=== PATIENT | male | born 1940 | race Caucasian/White ===

== ENCOUNTER → 2017-04-18 | Outpatient (CLI) | payer OTHER ==
[~2017-04-18] MED LIST: ASPEC81 PO; GLC500 PO; IBUP-1428 PO; LISI-725 PO; METH500T37 PO; OMEG10007 PO; OSTEO BIOFLEX PO; PRAV20TA PO
[2017-04-18 15:01] LABS: HEMATOCRIT 38.5 % (42-52); MEAN CORPUSCULAR HEMOGLOBIN 34.1 pg (25-34); MEAN CORPUSCULAR HGB CONC 33.8 g/dl (32-36); MEAN PLATELET VOLUME 11.8 fL (7.4-10.4); PLATELET COUNT 129 K/uL (130-400); RED BLOOD COUNT 3.81 M/uL (4.7-6.1); WHITE BLOOD COUNT 6.33 K/uL (4.8-10.8)
[2017-04-18 15:19] LABS: ESTIMATED AVERAGE GLUCOSE 148 mg/dl; HA1C FLAG Normal (Normal)
[2017-04-18 15:26] LABS: URINE APPEARANCE CLEAR (CLEAR); URINE BILIRUBIN NEG (NEG); URINE COLOR YELLOW; URINE EPITHELIAL CELL AUTO 0-5 /lpf (0-5); URINE NITRITE NEG (NEG); URINE SPECIFIC GRAVITY 1.018 (1.000-1.030); UROBILINOGEN NEG (NEG)
[2017-04-18 15:29] LABS: BLOOD UREA NITROGEN 31 mg/dl (7-18); BUN/CREATININE RATIO 14.1 (10-20); CALCIUM 9.2 mg/dl (8.5-10.1); CARBON DIOXIDE 26 mmol/L (21-32); CHLORIDE 104 mmol/L (98-107); GLUCOSE 174 mg/dl (70-99); POTASSIUM 4.5 mmol/L (3.5-5.1); SODIUM 138 mmol/L (136-145)
[2017-04-18 15:33] LABS: URINE PROTIEN/CREAT RATIO 0.2 (0-0.2); URINE TOTAL PROTEIN 30.1 mg/dl (0-11.9)
[2017-04-18 15:34] LABS: MANUAL MICROSCOPIC REQUIRED? NO; REVIEW REQ? NO
[2017-04-18 15:40] LABS: CHOLESTEROL 154 mg/dl (0-200); CHOLESTEROL/HDL RATIO 2.8; HDL CHOLESTEROL 55 mg/dl; LDL CHOLESTEROL CALCULATED 76 mg/dl; PHOSPHORUS 3.1 mg/dl (2.5-4.9); TRIGLYCERIDES 117 mg/dl (0-150); VERY LOW DENSITY LIPOPROT CALC 23 mg/dl
== END | disposition home or self-care (01) ==
LOC: C.LABBC 10:46
PROVIDERS: ATTEND Internal Medicine Nephrology
DX: N18.3 Chronic kidney disease, stage 3 (moderate) (principal); I12.9 Hypertensive chronic kidney disease with stage 1 through stage 4 chronic kidney disease, or unspecified chronic kidney disease; D64.9 Anemia, unspecified; E55.9 Vitamin D deficiency, unspecified; R31.9 Hematuria, unspecified; E11.22 Type 2 diabetes mellitus with diabetic chronic kidney disease; E78.5 Hyperlipidemia, unspecified; E11.29 Type 2 diabetes mellitus with other diabetic kidney complication; I25.10 Atherosclerotic heart disease of native coronary artery without angina pectoris; I70.0 Atherosclerosis of aorta

== ENCOUNTER → 2018-01-30 | Outpatient (CLI) | payer OTHER ==
[2018-01-30 17:07] LABS: ALBUMIN 4.1 gm/dl (3.4-5.0); ALT/SGPT 28 U/L (12-78); AST/SGOT 24 U/L (15-37); BLOOD UREA NITROGEN 29 mg/dl (7-18); CALCIUM 9.1 mg/dl (8.5-10.1); CARBON DIOXIDE 28 mmol/L (21-32); CREATININE 2.13 mg/dl (0.60-1.40); GLUCOSE 142 mg/dl (70-99); POTASSIUM 4.3 mmol/L (3.5-5.1); SODIUM 138 mmol/L (136-145)
[2018-01-30 17:10] LABS: ALKALINE PHOSPHATASE 52 U/L (45-117); CHOLESTEROL 124 mg/dl (0-200); LDL CHOLESTEROL CALCULATED 44 mg/dl; TOTAL PROTEIN 8.3 gm/dl (6.4-8.2)
[2018-01-30 19:56] LABS: HEMATOCRIT 39.4 % (42-52); MEAN CELL VOLUME 100.5 fL (80-100); MEAN CORPUSCULAR HEMOGLOBIN 35.7 pg (25-34); MEAN CORPUSCULAR HGB CONC 35.5 g/dl (32-36); MEAN PLATELET VOLUME 12.1 fL (7.4-10.4); PLATELET COUNT 119 K/uL (130-400); RED CELL DISTRIBUTION WIDTH CV 13.2 % (11.5-14.5); RED CELL DISTRIBUTION WIDTH SD 47.8 fL (36.4-46.3); WHITE BLOOD COUNT 6.79 K/uL (4.8-10.8)
[2018-01-31 06:31] LABS: HEMOGLOBIN A1C 6.8 % (4.5-5.6)
== END | disposition home or self-care (01) ==
LOC: C.LABBC 14:25
PROVIDERS: ATTEND Internal Medicine Geriatric Medicine
DX: N18.3 Chronic kidney disease, stage 3 (moderate) (principal); I12.9 Hypertensive chronic kidney disease with stage 1 through stage 4 chronic kidney disease, or unspecified chronic kidney disease; D64.9 Anemia, unspecified; E55.9 Vitamin D deficiency, unspecified; E11.29 Type 2 diabetes mellitus with other diabetic kidney complication; E78.5 Hyperlipidemia, unspecified

== ENCOUNTER 2020-05-12 12:16 | Inpatient (IN) ==
[2020-05-12] MEDS ORDERED: SODIUM CHLORIDE 0.9% 500 ML IV ONE (12:52)
[2020-05-12 13:11] LABS: Basophils # (auto) 0.02 K/uL (0-0.2); Basophils % (auto) 0.2 %; Eosinophils # (auto) 0.03 K/uL (0-0.5); Eosinophils % (auto) 0.3 %; Hematocrit (blood only) 39.1 % (42-52); Hemoglobin 13.7 g/dL (14.0-18.0); Immature Granulocytes # (auto) 0.55 K/uL (0.00-0.02); Immature Granulocytes % (auto) 4.9 %; Lymphocytes % (auto) 10.7 %; Mean Corpuscular Hemoglobin 33.9 pg (25-34); Mean Corpuscular Volume 96.8 fL (80-100); Monocytes # (auto) 1.33 K/uL (0.11-0.59); Monocytes % (auto) 11.9 %; Neutrophils # (auto) 8.06 K/uL (1.4-6.5); Nucleated RBC # (auto) 0.02 K/uL (0-0); Nucleated RBC % (auto) 0.1 %; Platelet Count 221 K/uL (130-400); RDW Coefficient of Variation 13.1 % (11.5-14.5); RDW Standard Deviation 46.8 fL (36.4-46.3); Red Blood Count 4.04 M/uL (4.7-6.1); White Blood Count 11.19 K/uL (4.8-10.8)
[2020-05-12 13:23] LABS: Appearance Urine Clear (Clear); Bilirubin Urine Negative (Negative); Blood Urine Trace (Negative); Color Urine Yellow; Epithelial Cell Urine Auto 0-5 /lpf (0-5); Glucose Urine UA Negative (Negative); Ketones Urine Negative (Negative); Leukocyte Esterase Urine 1+ (Negative); Nitrite Urine Negative (Negative); Protein Urine 2+ (Negative); Specific Gravity Urine 1.019 (1.000-1.030); Urobilinogen Urine Negative (Negative)
--- NOTE | 2020-05-12 13:33 | XRay Report ---
SINGLE VIEW CHEST CLINICAL HISTORY: Atypical chest pain. FINDINGS: An AP, portable, upright chest radiograph is compared to study dated 10/11/2019. The cardiome diastinal silhouette is unremarkable. There is mild bibasilar atelectasis. The lungs and pleural spac es are otherwise clear. No pneumothorax is seen. The skeletal structures are osteopenic. The bony tho rax is grossly intact. IMPRESSION: No active disease in the chest. ACT 112: Negative or not required by law. Electronically signed by: Pancho Ceballos M.D. 05/12/2020 1:31 PM
--- NOTE | 2020-05-12 13:33 | Emergency Department Note ---
Impression & Plan UTI (urinary tract infection), Diabetes mellitus with renal complications, Elevated troponin, Right bundle branch block (RBBB) with left anterior fascicular block, Generalized weakness ED Provider Note NAME: SMITHA BASURTO AGE: 79 SEX: M ARRIVES VIA: Walk-In INFORMANT: Patient, ED PROVIDER(S): Mk Hooker MD CHIEF COMPLAINT: Weakness, urinary urgency. PLAN: Disposition: admit. MEDICAL DECISION MAKING: The patient is a pleasant 79-year-old gentleman with a past medical history of BPH, CAD, uncontrolled diabetes, CKD who presents emergency department for evaluation of several weeks of generalized weakness/fatigue with frequency and urinary urgency worsening for the past several weeks where today they contacted their PCPs office given evolution of symptoms and they were concerned given his recently identified uncontrolled diabetes at this could be contributing. He was referred to the emergency department for evaluation. Patient denies any fevers, cough, congestion, chest pain, shortness of breath, diarrhea. Denies any known contacts with individuals diagnosed with COVID-19. On arrival the patient is fatigued appearing but no acute distress, afebrile with stable vital signs. Abdomen is benign. EKG without overt acute ischemia. Likely sinus tachycardia vs atrial ectopic rhythm. RBBB and LAFB present, which patient describes prior history of conduction abnormality. No prior EKGs for comparison. CXR negative for acute process. WBC 11.1, nonspecific. H/H 13.7/39.1 similar to prior range of values. Platelets wnl. Glucose 254. Chemistry with mild metabolic acidosis with bicarb 19. Agap 12. Cr 2.2, slightly increased from recent range of values. LFTs slightly elevated with AST, ALT and AP 141, 89, and 249, respectively. UA c/w infection with WBCs and bacteria. Treatment initiated with CTX. Initial troponin 0.057, which is suspected to be related to demand in setting of UTI and metabolic abnormalities. CT abd/pelvis ordered and pending to clarify lower abdominal sx and elevated LFTs. Patient agreeable with plan for admission. Case was discussed with Dr. Moreno, [facility], who will evaluate the patient for admission. CT subsequently with periaortic LAD and possibility of small area of diverticulitis. Will defer decision for additional ABX to admitting team. Triage Nursing notes reviewed and agree them. Prior medical records reviewed Vital Signs: reviewed and remarkable for no significant abnormalities Differential diagnosis: Infection, dehydration, metabolic abnormality, hypo/hyperglycemia, electrolyte disturbance, anemia, hypoxia, cardiac sources, intracerebral event, toxicologic, neurologic, as well as other pathologies. ER treatment provided: See below. Diagnostics interpreted by me: ECG 1301: Likely sinus tachycardia, 119 bpm, no ectopy, RBBB, LAFB, no overt ST elevation or depression, QTC 500 QRS 124 ECG 1345: Suspect atrial ectopic rhythm, 94 bpm, RBBB, LAFB, no overt ST elevation or depression, QTC 500 QRS 124 Cardiac Monitoring: An order for continuous cardiac monitoring was placed and demonstrated sinus tachycardia, 119 bpm, no ecotpy. Laboratory studies: See below Imaging studies: SINGLE VIEW CHEST CLINICAL HISTORY: Atypical chest pain. FINDINGS: An AP, portable, upright chest radiograph is compared to study dated 10/11/2019. The cardiomediastinal silhouette is unremarkable. There is mild bibasilar atelectasis. The lungs and pleural spaces are otherwise clear. No pneumothorax is seen. The skeletal structures are osteopenic. The bony thorax is grossly intact. IMPRESSION: No active disease in the chest. -- CT abd pelvis wo con CT DOSE: 353.57 mGy.cm HISTORY: Pain lower abd pain, uti TECHNIQUE: Multiaxial CT images of the abdomen and pelvis were performed without contrast. A dose lowering technique was utilized adhering to the principles of ALARA. COMPARISON STUDY: 09/06/2016 FINDINGS: Lung bases are clear. The liver spleen and pancreas are unremarkable. There are several gallstones in the gallbladder neck. The adrenal glands are normal. The kidneys are negative for hydronephrosis. Slight degree of left perinephric fat stranding. This is unchanged from the prior study and appears chronic. Interval development of moderate periaortic and retroperitoneal adenopathy. A retrocrural node on image 86 measures 1.4 cm. Several periaortic nodes adjacent to the level of the renal veins measure up to 1.5 cm maximum dimension. Periaortic nodes measure to 1.7 cm. There is moderate atrophy of the right iliopsoas musculature compared to the left. This is unchanged. There are findings of chronic sigmoid diverticulosis. There appears to be mild acute diverticulitis type change of the junction of the descending and proximal sigmoid. There is a slight degree of pericolonic infiltrative change. No evidence for abscess or collection. The bony structures show severe degenerative change of the right hip. There are significant degenerative changes of the lumbar spine. No evidence for bony destructive process. IMPRESSION: 1. Interval development of moderate periaortic and retroperitoneal adenopathy. 2. Chronic diverticulosis throughout the bulk of the sigmoid with a small linear focus of acute diverticulitis type change at the juncture of the descending and proximal sigmoid colonic region. 3. No evidence for abscess collection or obstruction. 4. Follow-up at a later date should be performed to exclude progressive adenopathy, versus the possibility of a PET scan. Consultation(s): Case was discussed with Dr. Moreno, [facility] [place] hospitalist, who will evaluate the patient for admission. HPI: The patient is a pleasant 79-year-old gentleman with a past medical history of BPH, CAD, uncontrolled diabetes, CKD who presents emergency department for evaluation of several weeks of generalized weakness/fatigue with frequency and urinary urgency worsening for the past several weeks where today they contacted their PCPs office given evolution of symptoms and they were concerned given his recently identified uncontrolled diabetes at this could be contributing. He was referred to the emergency department for evaluation. Patient denies any fevers, cough, congestion, chest pain, shortness of breath, diarrhea. Denies any known contacts with individuals diagnosed with COVID-19. ROS: See above HPI for pertinent positives & negatives. A total of 10 systems reviewed and were otherwise negative. PAST MEDICAL HISTORY:See Below PAST SURGICAL HISTORY:See Below FAMILY HISTORY:See Below SOCIAL HISTORY:See Below HOME MEDICATIONS:See Below ALLERGIES:See Below VITALS:See Below PHYSICAL EXAMINATION: GENERAL: Awake, alert, fatigued-appearing, in no distress HENT: Normocephalic, atraumatic. Oropharynx with dry mucous membranes and otherwise unremarkable. EYES: Normal conjunctiva. Sclera non-icteric. NECK: Supple. No nuchal rigidity. FROM. No JVD. RESPIRATORY: Clear to auscultation. CARDIAC: Regular rate, normal rhythm. Extremities warm and well perfused. Pulses equal. ABDOMEN: Soft, non-distended. No tenderness to palpation. No rebound or guarding. No masses. RECTAL: Deferred. MUSCULOSKELETAL: Chest examination reveals no tenderness. The back is symmetrical on inspection without obvious abnormality. There is no CVA tenderness to palpation. No joint edema. LOWER EXTREMITIES: Calves are equal size bilaterally and non-tender. Scant BLE edema. No discoloration. NEURO: Normal sensorium. No sensory or motor deficits noted. SKIN: No rash or jaundice noted. 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: No Beliefs That Will Affect Care: None marital status: Current Living Situation: Spouse Other Information That Helps Us Care for You: No Feels Safe at Home: Yes Safety Concerns: Feels Safe At This Time caffeine: Yes Seatbelt Use: always Allergies Allergies Allergy/AdvReac Type Severity Reaction Status Date / Time oxycodone [From Percodan] AdvReac Severe GI UPSET Verified 05/12/20 15:09 atorvastatin [From Lipitor] AdvReac Mild MUSCLE Verified 05/12/20 15:09 ACHES simvastatin [From Zocor] AdvReac Mild MUSCLE Verified 05/12/20 15:09 ACHES Home Meds Home Medications Medication Instructions Recorded Confirmed glucosamine-chondroitin 250 mg-200 1 tab PO DAILY tab 06/14/19 05/12/20 mg tablet lancets 30 gauge #25 ea 06/14/19 05/12/20 aspirin [Aspir-81] 81 mg PO QAM 05/12/20 05/12/20 glimepiride 1 mg PO QDD 05/12/20 05/12/20 lisinopril 2.5 mg PO QAM 05/12/20 05/12/20 pravastatin 10 mg PO HS 05/12/20 05/12/20 Previous Rx's Medication Instructions Recorded blood sugar diagnostic #100 ea 09/14/19 Results & Data (ED) Vital Signs Vital Signs - 24 hr 05/12/20 12:21 05/12/20 12:51 Temperature 36.8 C Temperature Source Oral Pulse Rate 122 H Pulse Rhythm Regular Pulse Strength Normal Respiratory Rate 20 Respiratory Effort / Characteristics Non-Labored Respiratory Depth Normal Respiratory Pattern Regular Blood Pressure 127/78 Blood Pressure Mean 94 Blood Pressure Position Sitting Pulse Oximetry 100 95 Oxygen Delivery Method Room Air Room Air Sepsis Recent Fever Within 48 Hours No Sepsis New/Unexplained Change in Mental Status No Sepsis Action Taken by Nursing No Action Required Laboratory Data Attestation: I reviewed the patient's lab results. Result diagrams: 05/12/20 13:00 05/12/20 13:00 Lab Results 05/12/20 05/12/20 05/12/20 Range/Units 13:00 13:00 13:00 WBC 11.19 H (4.8-10.8) K/uL RBC 4.04 L (4.7-6.1) M/uL Hgb 13.7 L (14.0-18.0) g/dL Hct 39.1 L (42-52) % MCV 96.8 (80-100) fL MCH 33.9 (25-34) pg MCHC 35.0 (32-36) g/dL RDW Std Deviation 46.8 H (36.4-46.3) fL RDW Coeff of Gerry 13.1 (11.5-14.5) % Plt Count 221 (130-400) K/uL MPV 11.0 H (7.4-10.4) fL Immature Gran % (Auto) 4.9 % Neut % (Auto) 72.0 % Lymph % (Auto) 10.7 % Roosevelt % (Auto) 11.9 % Eos % (Auto) 0.3 % Baso % (Auto) 0.2 % Neut # (Auto) 8.06 H (1.4-6.5) K/uL Lymph # (Auto) 1.20 (1.2-3.4) K/uL Roosevelt # (Auto) 1.33 H (0.11-0.59) K/uL Eos # (Auto) 0.03 (0-0.5) K/uL Baso # (Auto) 0.02 (0-0.2) K/uL Immature Gran # (Auto) 0.55 H (0.00-0.02) K/uL Absolute Nucleated RBC 0.02 H (0-0) K/uL Nucleated RBC % (auto) 0.1 % PT Cancelled INR Cancelled APTT Cancelled PTT Ratio Cancelled Sodium 137 (136-145) mmol/L Potassium 4.2 (3.5-5.1) mmol/L Chloride 106 (98-107) mmol/L Carbon Dioxide 19 L (21-32) mmol/L Anion Gap 12.0 H (3-11) BUN 31 H (7-18) mg/dl Creatinine 2.21 H (0.6-1.4) mg/dl Est Cr Clr Drug Dosing Not Reportable Est GFR ( Amer) 31.9 Est GFR (Non-Af Amer) 27.5 BUN/Creatinine Ratio 14.2 (10-20) Glucose 254 H (70-99) mg/dl Calcium 9.4 (8.5-10.1) mg/dl Phosphorus 3.3 (2.5-4.9) mg/dl Magnesium 2.1 (1.8-2.4) mg/dl Total Bilirubin 0.7 (0.2-1) mg/dl Direct Bilirubin (0-0.2) mg/dl AST 141 H (15-37) U/L ALT 89 H (12-78) U/L Alkaline Phosphatase 249 H (45-117) U/L Troponin I 0.057 H* (0-0.045) ng/ml Total Protein 8.4 H (6.4-8.2) gm/dl Albumin 3.1 L (3.4-5.0) gm/dl Globulin 5.3 H (2.5-4.0) gm/dl Albumin/Globulin Ratio 0.6 L (0.9-2) Lipase 118 (73-393) U/L Urine Color Urine Appearance (Clear) Urine pH (4.5-7.5) Ur Specific Og[place] (1.000-1.030) Urine Protein (Negative) Urine Glucose (UA) (Negative) Urine Ketones (Negative) Urine Blood (Negative) Urine Nitrite (Negative) Urine Bilirubin (Negative) Urine Urobilinogen (Negative) Ur Leukocyte Esterase (Negative) Urine WBC (Auto) (0-5) /hpf Urine RBC (Auto) (0-4) /hpf U Hyaline Cast (Auto) (0-5) /lpf U Epithel Cells (Auto) (0-5) /lpf Urine Bacteria (Auto) (Negative) Urine Sperm (None Prsent) 05/12/20 05/12/20 Range/Units 13:07 13:48 WBC (4.8-10.8) K/uL RBC (4.7-6.1) M/uL Hgb (14.0-18.0) g/dL Hct (42-52) % MCV (80-100) fL MCH (25-34) pg MCHC (32-36) g/dL RDW Std Deviation (36.4-46.3) fL RDW Coeff of Gerry (11.5-14.5) % Plt Count (130-400) K/uL MPV (7.4-10.4) fL Immature Gran % (Auto) % Neut % (Auto) % Lymph % (Auto) % Roosevelt % (Auto) % Eos % (Auto) % Baso % (Auto) % Neut # (Auto) (1.4-6.5) K/uL Lymph # (Auto) (1.2-3.4) K/uL Roosevelt # (Auto) (0.11-0.59) K/uL Eos # (Auto) (0-0.5) K/uL Baso # (Auto) (0-0.2) K/uL Immature Gran # (Auto) (0.00-0.02) K/uL Absolute Nucleated RBC (0-0) K/uL Nucleated RBC % (auto) % PT 12.8 H INR 1.2 H APTT 29.7 PTT Ratio 1.1 Sodium (136-145) mmol/L Potassium (3.5-5.1) mmol/L Chloride (98-107) mmol/L Carbon Dioxide (21-32) mmol/L Anion Gap (3-11) BUN (7-18) mg/dl Creatinine (0.6-1.4) mg/dl Est Cr Clr Drug Dosing Est GFR ( Amer) Est GFR (Non-Af Amer) BUN/Creatinine Ratio (10-20) Glucose (70-99) mg/dl Calcium (8.5-10.1) mg/dl Phosphorus (2.5-4.9) mg/dl Magnesium (1.8-2.4) mg/dl Total Bilirubin (0.2-1) mg/dl Direct Bilirubin (0-0.2) mg/dl AST (15-37) U/L ALT (12-78) U/L Alkaline Phosphatase (45-117) U/L Troponin I (0-0.045) ng/ml Total Protein (6.4-8.2) gm/dl Albumin (3.4-5.0) gm/dl Globulin (2.5-4.0) gm/dl Albumin/Globulin Ratio (0.9-2) Lipase (73-393) U/L Urine Color Yellow Urine Appearance Clear (Clear) Urine pH 5.0 (4.5-7.5) Ur Specific [place] 1.019 (1.000-1.030) Urine Protein 2+ H (Negative) Urine Glucose (UA) Negative (Negative) Urine Ketones Negative (Negative) Urine Blood Trace H (Negative) Urine Nitrite Negative (Negative) Urine Bilirubin Negative (Negative) Urine Urobilinogen Negative (Negative) Ur Leukocyte Esterase 1+ H (Negative) Urine WBC (Auto) 10-30 H (0-5) /hpf Urine RBC (Auto) 5-10 H (0-4) /hpf U Hyaline Cast (Auto) 10-30 H (0-5) /lpf U Epithel Cells (Auto) 0-5 (0-5) /lpf Urine Bacteria (Auto) 1+ H (Negative) Urine Sperm Present A (None Prsent) Administered Medications Metronidazole (Flagyl) 500 mg in 100 mls @ 100 mls/hr IV Q8H SAMMY Stop: 05/22/20 16:59 Last Infusion: 05/12/20 18:57 Dose: 0 mls/hr Documented by: [id number] Admin: 05/12/20 17:45 Dose: 100 mls/hr Documented by: [id number] Lactated Ringer's (Lr) 1,000 mls @ 125 mls/hr IV .Q8H SAMMY Stop: 06/11/20 20:29 Last Admin: 05/12/20 20:48 Dose: 125 mls/hr Documented by: [id number] Insulin Aspart (Novolog Flexpen) 0 units SC ACHS SAMMY Stop: 06/11/20 17:59 Last Admin: 05/12/20 21:13 Dose: Not Given Documented by: [id number] Cosigned by: [id number] Admin: 05/12/20 18:55 Dose: 3 units Documented by: [id number] Cosigned by: [id number] Insulin Glargine (Lantus Solostar Pen) 5 units SC BID SAMMY Stop: 06/11/20 20:59 Last Admin: 05/12/20 21:12 Dose: 5 units Documented by: [id number] Cosigned by: [id number] Pravastatin Sodium (Pravachol) 10 mg PO HS [facility] Stop: 06/11/20 20:59 Last Admin: 05/12/20 21:10 Dose: 10 mg Documented by: [id number] Tamsulosin HCl (Flomax) 0.4 mg PO HS [facility] Stop: 06/11/20 20:59 Last Admin: 05/12/20 21:10 Dose: Not Given Documented by: [id number] Discontinued Medications Aspirin (Aspirin) 324 mg PO NOW STA Stop: 05/12/20 14:03 Last Admin: 05/12/20 14:35 Dose: 324 mg Documented by: [id number] Sodium Chloride (Nss) 500 mls @ 999 mls/hr IV .Q31M ONE Stop: 05/12/20 13:22 Last Infusion: 05/12/20 13:59 Dose: 0 mls/hr Documented by: [id number] Admin: 05/12/20 13:18 Dose: 999 mls/hr Documented by: [id number] Ceftriaxone Sodium (Rocephin) 2,000 mg in 70 mls @ 140 mls/hr IV NOW STA Stop: 05/12/20 14:26 Last Infusion: 05/12/20 15:46 Dose: 0 mls/hr Documented by: [id number] Admin: 05/12/20 14:48 Dose: 140 mls/hr Documented by: [id number] Sodium Chloride (Nss) 500 mls @ 125 mls/hr IV .Q4H SAMMY Stop: 06/11/20 14:14 Last Infusion: 05/12/20 15:11 Dose: 0 mls/hr Documented by: [id number] Admin: 05/12/20 14:35 Dose: 125 mls/hr Documented by: [id number] Sodium Chloride (Nss 1000ml) 1,000 mls @ 999 mls/hr IV .Q1H1M ONE Stop: 05/12/20 15:37 Last Infusion: 05/12/20 16:27 Dose: 0 mls/hr Documented by: [id number] Admin: 05/12/20 15:11 Dose: 999 mls/hr Documented by: [id number] Blood Pressure Blood Pressure Findings: Elevated blood pressure Blood Pressure Disposition: further management by hospitalist Discharge Plan Visit Data *Final* Discharge Date/Time: 05/12/20 15:48 Chief Complaint: Dehydration Stated Complaint: DEHYDRATION,URINARY SYMPTOMS ED Provider: Mk Hooker Discharge Problem: UTI (urinary tract infection), Diabetes mellitus with renal complications, Elevated troponin, Right bundle branch block (RBBB) with left anterior fascicular block, Generalized weakness Patient Disposition: Admitted As Inpatient Discharge Instructions Interventions: ED Discharge Assessment Last Done: 05/12/20 15:48 Discharge Problem: UTI (urinary tract infection) Qualifiers: Urinary tract infection type: acute cystitis Hematuria presence: with hematuria Qualified Code(s): N30.01 - Acute cystitis with hematuria
[2020-05-12 13:36] LABS: Alanine Aminotransferase 89 U/L (12-78); Albumin Globulin Ratio 0.6 (0.9-2); Albumin Level 3.1 gm/dl (3.4-5.0); Alkaline Phosphatase 249 U/L (45-117); Aspartate Aminotransferase 141 U/L (15-37); BUN Creatinine Ratio 14.2 (10-20); Bilirubin,Total 0.7 mg/dl (0.2-1); Blood Urea Nitrogen 31 mg/dl (7-18); Calcium 9.4 mg/dl (8.5-10.1); Carbon Dioxide 19 mmol/L (21-32); Chloride 106 mmol/L (98-107); Est GFR (African American) 31.9; Est GFR (Non-African American) 27.5; Globulin 5.3 gm/dl (2.5-4.0); Glucose 254 mg/dl (70-99); Lipase 118 U/L (73-393); Magnesium 2.1 mg/dl (1.8-2.4); Phosphorus 3.3 mg/dl (2.5-4.9); Potassium 4.2 mmol/L (3.5-5.1); Sodium 137 mmol/L (136-145); Total Protein 8.4 gm/dl (6.4-8.2); Troponin I 0.057 ng/ml (0-0.045)
[2020-05-12 13:39] LABS: Bacteria Urine Automated 1+ (Negative); Sperm Urine Present (None Prsent)
[2020-05-12] MEDS ORDERED: cefTRIAXone SODIUM 2,000 MG/70 ML BAG IV STA (13:57)
[2020-05-12] MEDS ORDERED: ASPIRIN CHEW 324 MG PO STA (14:02)
[2020-05-12 14:12] LABS: INR 1.2 (0.9-1.1); Partial Thromboplastin Ratio 1.1; Partial Thromboplastin Time 29.7 Seconds (21.0-31.0); Prothrombin Time 12.8 Seconds (9.0-12.0)
[2020-05-12] MEDS ORDERED: SODIUM CHLORIDE 0.9% 500 ML IV SCH (14:15)
--- NOTE | 2020-05-12 14:28 | History & Physical Report ---
Date of Service May 12, 2020 Assessment & Plan (1) UTI (urinary tract infection): Continue ceftriaxone 2g IV daily Follow up urine/blood culture Possible prostatitis given duration and would consider longer course of antibiotics if his symptoms do not rapidly improve with antibiotics Rectal exam not performed on admission No imaging or CVA tenderness to suggest pyelonephritis (2) Diverticulitis: No real symptoms of this but he does have LLQ (although no worse the right side), however concern on CT therefore will preliminary cover for this. Add metronidazole to ceftriaxone as above. Full liquid diet - can likely be advanced as long as no increasing pain tomorrow. (3) Retroperitoneal lymphadenopathy: Will need follow up CT to exclude progressive adenopathy. Depending on clinical status recommend CT A/P with IV contrast in approximately 2-3 months. (4) Right bundle branch block (RBBB) with left anterior fascicular block: Suspect chronic given patient recollection of conduction abnormality but no prior EKGs to compare. No history of syncope to suggest need for pacemaker (5) Elevated troponin: Suspect demand-ischemia given lack of chest pain or shortness of breath. However will trend to confirm this. (6) Elevated LFTs: Unclear cause. Denies alcohol history. Gallstones on CT but no significant RUQ pain on deep palpation to suggest cholangitis or cholecystitis. Lipase WNL. Likely just biliary stasis but will trend for resolution. (7) Type 2 diabetes mellitus: HbA1C 7.2 in Nov. Will repeat with AM labs. Only on glimepiride 1mg outpatient. Switch to Lantus 5 units BID with Novolog correction and carb coverage T2DM diet (8) DVT prophylaxis: SCDs Will defer chemical prophylaxis given RBCs in urine but if prolonged stay he would likely benefit from this. Admission and Anticipated Discharge Date Admission Date: 05/12/2020 History of Present Illness Chief Complaint: Urinary frequency and dysuria Primary Care Provider: DO Melvin Anne Sukumar is a 79 year old male who presents to the ER with generalized weakness, urinary frequency and dysuria gradually getting worse for the last 3 weeks. Urinalysis and subsequent culture on April 23 was negative for infection. However despite this his symptoms continue to get worse. He was started on Flomax 1.5 weeks ago however this made his urge worse therefore he stopped this 3 days ago. He denies any fevers, chills. He has occasional suprapubic, left and right-sided abdominal pain. No nausea, vomiting, change in bowels, constipation, diarrhea, melena, bright red blood in stool. No prior history or kidney stones. He reports having longstanding prostate problems such as nocturia which he has not taken medication for. However currently he needing to urinate every 10 minutes with a constant urge. He is very concerned about being in hospital and needing to get up to urinate due to his chronic ambulatory dysfunction. Allergies Allergy/AdvReac Type Severity Reaction Status Date / Time oxycodone [From Percodan] AdvReac Severe GI UPSET Verified 05/12/20 15:09 atorvastatin [From Lipitor] AdvReac Mild MUSCLE Verified 05/12/20 15:09 ACHES simvastatin [From Zocor] AdvReac Mild MUSCLE Verified 05/12/20 15:09 ACHES Home Medications Home Medications Medication Instructions Recorded Confirmed Type glucosamine-chondroitin 250 mg-200 1 tab PO DAILY tab 06/14/19 05/12/20 History mg tablet lancets 30 gauge #25 ea 06/14/19 05/12/20 History blood sugar diagnostic #100 ea 09/14/19 05/12/20 Rx aspirin [Aspir-81] 81 mg PO QAM 05/12/20 05/12/20 History glimepiride 1 mg PO QDD 05/12/20 05/12/20 History lisinopril 2.5 mg PO QAM 05/12/20 05/12/20 History pravastatin 10 mg PO HS 05/12/20 05/12/20 History Past Med/Surg History Medical History Anemia (Chronic) Aortic atherosclerosis Arteriosclerotic coronary artery disease CAD (coronary artery disease) 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 Has declined repeat Colonoscopy per records History of strabismus surgery Family History Father Heart disease Mother Rheumatoid arthritis History of aortic valve replacement Unknown Diabetes Cancer Social History Smoking Status: Former smoker Smoking End Date: 1989; Second Hand Exposure: No; Do You Dip or Chew Tobacco: No; Hx Alcohol Use: No Hx Substance Use: No Preferred Language: Malian Communication Ability: Effective Visual Impairment: No Limitations Hearing Ability: Normal Component Engineer Required: No Beliefs That Will Affect Care: None marital status: Current Living Situation: Spouse Other Information That Helps Us Care for You: No Feels Safe at Home: Yes Safety Concerns: Feels Safe At This Time caffeine: Yes Seatbelt Use: always Review of Systems Review of Systems: All systems reviewed & are unremarkable except as noted in HPI & below Physical Exam Constitutional: well developed and + acute distress (Needing to urinate every 10 minutes) Eyes: + anicteric sclerae; normal pupil size ENMT: external ear and nose normal, oropharynx normal Neck: trachea midline, no thyromegaly Respiratory: normal respiratory effort, lungs clear to auscultation Cardiovascular: RRR, no murmur, no edema Gastrointestinal (Abdomen): Inspection/Auscultation: + abdomen distended and normal bowel sounds Percussion/Palpation: + abdomen tender (Generalized on deep palpation, although especially tender in suprapubic region) and abdomen soft; no guarding and abdomen not rigid Musculoskeletal: No acute muscle weakness, chronic right hip flexor weakness Skin: no rashes, warm and dry Neurologic: moves all extremities (Chronic right hip flexor weakness) and awake; not confused Speech / Cognition: normal speech Motor/Sensory: no tremor Psychiatric: A+Ox3, euthymic affect Genitourinary: no CVA tenderness Lymphatic: no inguinal lymphadenopathy Results & Data Results & Data ([facility]) Vital Signs (Past 12 Hours) Vital Signs Temp Pulse Resp BP Pulse Ox 05/12/20 12:51 95 05/12/20 12:21 36.8 C 122 H 20 127/78 100 Diagnostic Findings SINGLE VIEW CHEST IMPRESSION: No active disease in the chest. CT abd pelvis wo con IMPRESSION: 1. Interval development of moderate periaortic and retroperitoneal adenopathy. 2. Chronic diverticulosis throughout the bulk of the sigmoid with a small linear focus of acute diverticulitis type change at the juncture of the descending and proximal sigmoid colonic region. 3. No evidence for abscess collection or obstruction. 4. Follow-up at a later date should be performed to exclude progressive adenopathy, versus the possibility of a PET scan. ECG Indication: abdominal pain Rate (beats per minute): 119 Rhythm: sinus tachycardia Findings: + other (bifascicular block), + LAFB and + RBBB Comparison ECG Date: no prior available (pt reports prior history of conduction system abnormality known) Code Status & VTE Plan Code Status DNR/DNI as discussed with the patient and his VTE Prophylaxis Plan VTE Prophylaxis will be ordered: Yes PG Care Time/CCT Total # of Minutes Spent Total Time Spent with Patient: Total time spent is greater than 50% in coordination of care (as documented) at patient's floor/unit and/or counseling patient: Coding Level of Care Code 33115 Initial Inpt Care Lvl 3 Diagnoses UTI (urinary tract infection) N39.0 Diverticulitis K57.92 Retroperitoneal lymphadenopathy R59.0 Right bundle branch block (RBBB) with left anterior fascicular block I45.2 Elevated troponin R79.89 Elevated LFTs R79.89 Type 2 diabetes mellitus E11.9 DVT prophylaxis Z29.9
[2020-05-12] MEDS ORDERED: SODIUM CHLORIDE 0.9% 1000ML 1,000 ML IV ONE (14:37)
--- NOTE | 2020-05-12 15:18 | CT Scan Report ---
CT abd pelvis wo con CT DOSE: 353.57 mGy.cm HISTORY: Pain lower abd pain, uti TECHNIQUE: Multiaxial CT images of the abdomen and pelvis were performed without contrast. A dose lo wering technique was utilized adhering to the principles of ALARA. COMPARISON STUDY: 09/06/2016 FINDINGS: Lung bases are clear. The liver spleen and pancreas are unremarkable. There are several gallstones in the gallbladder neck. The adrenal glands are normal. The kidneys are negative for hydronephrosis. Slight degree of left per inephric fat stranding. This is unchanged from the prior study and appears chronic. Interval development of moderate periaortic and retroperitoneal adenopathy. A retrocrural node on angela ge 86 measures 1.4 cm. Several periaortic nodes adjacent to the level of the renal veins measure up t o 1.5 cm maximum dimension. Periaortic nodes measure to 1.7 cm. There is moderate atrophy of the right iliopsoas musculature compared to the left. This is unchanged. There are findings of chronic sigmoid diverticulosis. There appears to be mild acute diverticulitis t ype change of the junction of the descending and proximal sigmoid. There is a slight degree of lizbeth lonic infiltrative change. No evidence for abscess or collection. The bony structures show severe degenerative change of the rig ht hip. There are significant degenerative changes of the lumbar spine. No evidence for bony destruct andie process. IMPRESSION: 1. Interval development of moderate periaortic and retroperitoneal adenopathy. 2. Chronic diverticulosis throughout the bulk of the sigmoid with a small linear focus of acute diver ticulitis type change at the juncture of the descending and proximal sigmoid colonic region. 3. No evidence for abscess collection or obstruction. 4. Follow-up at a later date should be performed to exclude progressive adenopathy, versus the possib ility of a PET scan. ACT 112: Negative or not required by law. The above report was generated using voice recognition software. It may contain grammatical, syntax or spelling errors. Electronically signed by: Campos Green M.D. 05/12/2020 3:17 PM
[2020-05-12] MEDS ORDERED: DEXTROSE 50% 50 ML SYRINGE IV PRN (17:10)
[2020-05-12] MEDS ORDERED: CARBOHYDRATES FOR HYPOGLYCEMIA PO PRN (17:10)
[2020-05-12] MEDS ORDERED: GLUCAGON FOR INJ 1 MG VIAL SQ PRN (17:10)
[2020-05-12] MEDS ORDERED: GLUCOSE 40% GEL 15 GM TUBE PO PRN (17:10)
[2020-05-12] MEDS ORDERED: ACETAMINOPHEN 325 MG TAB PO PRN (17:10)
[2020-05-12] MEDS ORDERED: GLUCOSE 10 TABS/TUBE PO PRN (17:10)
[2020-05-12] MEDS: metroNIDAZOLE 500 MG/100 ML BAG IV SCH (17:45)
[2020-05-12] MEDS: INSULIN ASPART 100 UNITS/ML 3 ML PEN SC SCH ×2 (18:55→21:13)
[2020-05-12] MEDS: LACTATED RINGER'S 1,000 ML IV SCH (20:48)
[2020-05-12] MEDS ORDERED: TAMSULOSIN HCL 0.4 MG CAP PO SCH (21:00)
[2020-05-12] MEDS ORDERED: PRAVASTATIN SOD 10 MG TAB PO SCH (21:00)
[2020-05-12] MEDS: INSULIN GLARGINE SOLOSTAR 100 UNITS/ML 3 ML PEN SC SCH (21:12)
[2020-05-13] MEDS: metroNIDAZOLE 500 MG/100 ML BAG IV SCH ×2 (00:22→09:12)
[2020-05-13] MEDS: LACTATED RINGER'S 1,000 ML IV SCH (03:50)
[2020-05-13 05:55] LABS: Basophils # (auto) 0.01 K/uL (0-0.2); Basophils % (auto) 0.1 %; Eosinophils # (auto) 0.09 K/uL (0-0.5); Eosinophils % (auto) 0.9 %; Hematocrit (blood only) 37.4 % (42-52); Hemoglobin 12.8 g/dL (14.0-18.0); Immature Granulocytes # (auto) 0.42 K/uL (0.00-0.02); Immature Granulocytes % (auto) 4.1 %; Lymphocytes # (auto) 1.11 K/uL (1.2-3.4); Lymphocytes % (auto) 10.9 %; Mean Corpuscular Hemoglobin 33.5 pg (25-34); Mean Corpuscular Hgb Conc 34.2 g/dL (32-36); Mean Corpuscular Volume 97.9 fL (80-100); Mean Platelet Volume 10.7 fL (7.4-10.4); Monocytes # (auto) 1.23 K/uL (0.11-0.59); Neutrophils # (auto) 7.36 K/uL (1.4-6.5); Platelet Count 195 K/uL (130-400); RDW Coefficient of Variation 13.4 % (11.5-14.5); RDW Standard Deviation 47.3 fL (36.4-46.3); Red Blood Count 3.82 M/uL (4.7-6.1); White Blood Count 10.22 K/uL (4.8-10.8)
[2020-05-13 06:23] LABS: Albumin Level 3.1 gm/dl (3.4-5.0); Calcium 9.5 mg/dl (8.5-10.1); Creatinine Clr Calc Pharmacy 30.8 ml/min; Est GFR (African American) 39.5; Est GFR (Non-African American) 34.1; Potassium 4.2 mmol/L (3.5-5.1)
[2020-05-13 06:34] LABS: Albumin Globulin Ratio 0.7 (0.9-2); Bilirubin,Total 0.7 mg/dl (0.2-1); Estimated Average Glucose 194 mg/dl; Globulin 4.6 gm/dl (2.5-4.0); Hemoglobin A1C 8.4 % (4.5-5.6); Total Protein 7.7 gm/dl (6.4-8.2); Troponin I 0.077 ng/ml (0-0.045)
[2020-05-13] MEDS ORDERED: ASPIRIN 81 MG ECTAB PO SCH (09:00)
[2020-05-13] MEDS: INSULIN GLARGINE SOLOSTAR 100 UNITS/ML 3 ML PEN SC SCH (09:13)
[2020-05-13] MEDS: INSULIN ASPART 100 UNITS/ML 3 ML PEN SC SCH ×2 (09:14→13:07)
--- NOTE | 2020-05-13 11:51 | Electrocardiogram Report ---
Test Reason : Blood Pressure : / mmHG Vent. Rate : 119 BPM Atrial Rate : 117 BPM P-R Int : 000 ms QRS Dur : 124 ms QT Int : 356 ms P-R-T Axes : 000 -51 112 degrees QTc Int : 500 ms Sinus tachycardia with long 1st degree AV block Right bundle branch block Left anterior fascicular block Bifascicular block Left ventricular hypertrophy with repolarization abnormality Abnormal ECG No previous ECGs available Confirmed by Dipak Delgado ([id number]) on 05/13/2020 11:50:59 AM Referred By: REFERRED SELF Confirmed By:Jacek Delgado
--- NOTE | 2020-05-13 11:51 | Electrocardiogram Report ---
Test Reason : Blood Pressure : / mmHG Vent. Rate : 094 BPM Atrial Rate : 092 BPM P-R Int : 000 ms QRS Dur : 124 ms QT Int : 404 ms P-R-T Axes : 000 -48 047 degrees QTc Int : 505 ms Sinus rhythm with long 1st degree AV block Right bundle branch block Left anterior fascicular block Bifascicular block Minimal voltage criteria for LVH, may be normal variant Abnormal ECG When compared with ECG of 12-MAY-2020 13:01, (unconfirmed) No significant change was found Confirmed by Dipak Delgado ([id number]) on 05/13/2020 11:50:27 AM Referred By: REFERRED SELF Confirmed By:Jacek Delgado
[2020-05-13] MEDS ORDERED: cefTRIAXone SODIUM 2,000 MG in DEXTROSE 5% 50 ML IV SCH (14:00)
--- NOTE | 2020-05-13 16:00 | Discharge Summary ---
Date of Service May 13, 2020 Admission HPI Per Admitting Provider Melvin Patino is a 79 year old male who presents to the ER with generalized weakness, urinary frequency and dysuria gradually getting worse for the last 3 weeks. Urinalysis and subsequent culture on April 23 was negative for infection. However despite this his symptoms continue to get worse. He was started on Flomax 1.5 weeks ago however this made his urge worse therefore he stopped this 3 days ago. He denies any fevers, chills. He has occasional suprapubic, left and right-sided abdominal pain. No nausea, vomiting, change in bowels, constipation, diarrhea, melena, bright red blood in stool. No prior history or kidney stones. He reports having longstanding prostate problems such as nocturia which he has not taken medication for. However currently he needing to urinate every 10 minutes with a constant urge. He is very concerned about being in hospital and needing to get up to urinate due to his chronic ambulatory dysfunction. Admission Exam Per Admitting Provider Constitutional: well developed and + acute distress (Needing to urinate every 10 minutes) Eyes: + anicteric sclerae; normal pupil size ENMT: external ear and nose normal, oropharynx normal Neck: trachea midline, no thyromegaly Respiratory: normal respiratory effort, lungs clear to auscultation Cardiovascular: RRR, no murmur, no edema Gastrointestinal (Abdomen): Inspection/Auscultation: + abdomen distended and normal bowel sounds Percussion/Palpation: + abdomen tender (Generalized on deep palpation, although especially tender in suprapubic region) and abdomen soft; no guarding and abdomen not rigid Musculoskeletal: No acute muscle weakness, chronic right hip flexor weakness Skin: no rashes, warm and dry Neurologic: moves all extremities (Chronic right hip flexor weakness) and awake; not confused Speech / Cognition: normal speech Motor/Sensory: no tremor Psychiatric: A+Ox3, euthymic affect Genitourinary: no CVA tenderness Lymphatic: no inguinal lymphadenopathy Principal Diagnosis Prostatitis Discharge Exam General: Alert, oriented. Urinating frequently during the exam which required pauses. Skin: No noted rashes or bruises Psych: Appropriate mood and affect Neuro: No gross deficits HEENT: NC/AT Chest: Nontender to palpation. CV: RRR, Normal s1, s2. No murmurs appreciated Resp: Breath sounds clear bilaterally, no increased effort of breathing. No crackles/rhonchi/rales. Abdomen: Soft, nontender, nondistended. No guarding. Extremities: Some edema in right lower extremity. Discharge Data Allergies Allergy/AdvReac Type Severity Reaction Status Date / Time oxycodone [From Percodan] AdvReac Severe GI UPSET Verified 05/12/20 15:09 atorvastatin [From Lipitor] AdvReac Mild MUSCLE Verified 05/12/20 15:09 ACHES simvastatin [From Zocor] AdvReac Mild MUSCLE Verified 05/12/20 15:09 ACHES Consultations 05/12/20 14:03 ED Decision to Admit Stat Ordered Studies 05/12/20 13:57 CT abd pelvis wo con Stat Hospital Course (1) UTI (urinary tract infection): Ceftriaxone 2g IV daily while hospitalized, one dose. Dysuria and frequency persistent. UA with trace blood, leukocyte esterase and 1+ bacteria. Urine/blood culture NGTD. Possible prostatitis given duration and would consider longer course of antibiotics if his symptoms do not rapidly improve with antibiotics Discharged home with Bactrim SS to be taken twice a day for 4 weeks. BMP needed on 05/16/2020 to monitor potassium level, and weekly thereafter given pt will be on Bactrim for an extended period of time. Followup appointment scheduled with PCP on May 20, 2020. Office of urologist Dr. Veliz will also be in touch with the patient for scheduling of a followup visit as soon as possible for further evaluation of his suspected prostatitis. (2) Diverticulitis: No symptoms of this but however concern on CT therefore will preliminary cover for this. Treated with Flagyl. Discontinued on discharge as pt asymptomatic. Full liquid diet, advanced and tolerated. (3) Retroperitoneal lymphadenopathy: Will need follow up CT to exclude progressive adenopathy. Depending on clinical status recommend CT A/P with IV contrast in approximately 2-3 months. (4) Right bundle branch block (RBBB) with left anterior fascicular block: Likely chronic given patient recollection of conduction abnormality but no prior EKGs to compare. No history of syncope. (5) Elevated troponin: 0.05-0.07 during admission. Likely demand-ischemia given lack of chest pain or shortness of breath. (6) Elevated LFTs: Unclear cause. Denies alcohol history. Gallstones on CT but no significant RUQ pain on deep palpation to suggest cholangitis or cholecystitis. Lipase WNL. (7) Type 2 diabetes mellitus: HbA1C currently 8.4. Only on glimepiride 1mg outpatient. Switch to Lantus 5 units BID with Novolog correction and carb coverage while hospitalized. PCP followup recommended. (8) DVT prophylaxis: Total Time Total Time Spent Total Time Spent (In Minutes): >30 Discharge Plan Discharge Items Patient Disposition: Home - Self-Care Reason For Visit: DEHYDRATION,UTI, ELEVATED LFTS,URINARY URGENCY Discharge Diagnosis: PROSTATITIS Activity: Per Instructions section Non-emergency contact: Primary Care Provider Call non-emergency contact if: your symptoms worsen and you have a fever Follow-up/Referrals: Lizzy Amin, DO [Primary Care Provider] - (YOUR APPOINTMENT WITH DR. LIZZY AMIN IS ON WEDNESDAY, MAY 20, 2020 AT 4:00 P.M. IF YOUR NEED TO RESCHEDULE YOUR APPOINTMENT PLEASE CALL YOUR APPOINTMENT IS WITH JUNE ROCHE (UROLOGY) ON WEDNESDAY, MAY 20, 2020 AT 9:00 A.M. PLEASE CALL IF YOU TO TO RESCHEDULE THIS APPOINTMENT PLEASE ARRIVE FOR YOUR APPOINTMENT 15 MINUTES EARLY) Diet: Carb Consistent or DM2 Addtl Attending Provider Instructions: Mr. Patino, we believe that your prostate is infected. We are discharging you home with the single strength antibiotic Bactrim to be taken twice a day for the next 4 weeks We also scheduled you with a followup appointment with your doctor, Dr. Amin and your urologist Dr. Veliz. Please keep these appointments as scheduled as they are crucial to helping with your symptoms. Should your urinary frequency suddenly decrease or you have no urine output, please present directly to the emergency room. Also if you develop fevers, chills or night sweats. It was a pleasure taking care of you during your stay here. Pending Studies at Discharge: No Stand-Alone Forms: My [employer], Smoking Cessation Medications and DC Order Prescriptions: New sulfamethoxazole-trimethoprim [Bactrim] 400-80 mg tablet 1 tab PO BID 28 Days Qty: 56 RF: 0 Continued (DME) OneTouch Verio test strips strip See Rx Instructions .ROUTE .MEDSUPPLY Qty: 100 RF: 5 glucosamine-chondroitin 250-200 mg tablet 1 tab PO DAILY RF: 0 (DME) lancets [OneTouch Delica Lancets] 30 gauge misc See Dose Instructions .ROUTE .MEDSUPPLY Qty: 25 RF: 0 glimepiride 1 mg tablet 1 mg PO QDD RF: 0 pravastatin 10 mg tablet 10 mg PO HS RF: 0 aspirin [Aspir-81] 81 mg Tablet,Delayed Release (Dr/Ec) 81 mg PO QAM RF: 0 lisinopril 2.5 mg tablet 2.5 mg PO QAM RF: 0 Discharge Orders: Discharge Order (Routine); Ordered 05/13/20 Ordered By: Moon Raza/Other Patient Handouts: Managing Type 2 Diabetes Admission Data Admit Date/Time: 05/12/20 15:08 Attending Provider: Iftikhar La Admit Provider: Nilson Moreon Primary Care Provider: Lizzy Amin Other Providers: Nilson Moreno Other Interventions: Discharge Summary Assessment (RN) Last Done: 05/13/20 16:11 DC Date/Time DO NOT enter until pt leaves facility: 05/13/20 16:42 Supervising Physician Co-Signing Physician Notes I personally examined the patient and verified all alarcon points of history and exam, discussed case, and agree with decision making with Dr Herndon. nonstop urinary urgency. burning. voiding about every 15-30mins last few weeks. prior to that, still at least every 90mins at least overnight. tried flomax about 2-3 weeks ago for about a week - notes that he had more volume when he voided but still had the same nearly constant frequency. followed [facility] urology for a while - but they were talking procedures about 3yrs ago - he didn't wnat to do so then- stopped following up - obviously much more amenable now. vitals noted appearing mildly uncomfortable at times due to need to void. heent nc at mmm breathing unlabored no accessory muscles good effort skin no rashes no pallor or icterus UTI/urgency - almost certainly prostatitis given sx, pinpoint growth on urine culture, and duration of dysuria and urgency without evolving into a more severe process. really wants to go home- and without sepsis or overt urinary retention, is safe for home - but explained conditions (BPH and prostatits) in depth and at length - pt/ expressed understanding. discussed home w abx/close self monitoring/urology and PCP f/u vs same but also w asencio cath vs staying inpatient for urology consult -- he opted for first choice. bactrim Rx'd to get better prostatitis coverage - renally dosed - and should have frequent (end of the week, then probably at least weekly thereafter) BMPs while on -- f/u PCP and urology to help determine best duration depending on how he's doing - but d/w pt and frequently prostatitis does require weeks of treatment. reached out to dr veliz personally to help facilitate expedited outpt eval. otherwise as above Resident Activity Tracking Resident Involvement: Resident Care Provided Care Provided: Adult Hospital Medicine
[2020-05-13] MEDS ORDERED: SULFAMETHOXAZOLE/TRIMETHOPRIM DS 800/160MG TAB PO ONE (16:15)
--- NOTE | 2020-05-13 18:15 | Billing Data ---
Date of Service May 13, 2020 Coding Level of Care Code D/C Day Management >30 mins
--- NOTE | 2020-05-13 18:16 | Communication Note ---
Date of Service: May 13, 2020 By CMS guidelines, a determination that the admission or continued stay is not medically necessary has been made by a member of the UR committee and a phys ician for this hospital stay, therefore a Code 44 will be completed and the Inpatient admission will be changed to outpatient.
== END 2020-05-13 16:42 | disposition home or self-care (01) | DRG 728 ==
LOC: ED 12:16 → SUATTDRO 15:08 → 2N 15:08

== ENCOUNTER 2020-05-20 11:15 | Inpatient (IN) ==
[2020-05-20] MEDS ORDERED: fentaNYL citrate 100 MCG/2 ML VIAL IV PRN (11:53)
[2020-05-20] MEDS ORDERED: ONDANSETRON INJ 2 MG/ML 2 ML VIAL IV STA (11:53)
[2020-05-20] MEDS ORDERED: SODIUM CHLORIDE 0.9% 500 ML IV SCH (12:00)
[2020-05-20 12:05] LABS: Basophils # (auto) 0.01 K/uL (0-0.2); Basophils % (auto) 0.1 %; Eosinophils # (auto) 0.02 K/uL (0-0.5); Eosinophils % (auto) 0.2 %; Hematocrit (blood only) 35.6 % (42-52); Hemoglobin 12.5 g/dL (14.0-18.0); Immature Granulocytes # (auto) 0.35 K/uL (0.00-0.02); Immature Granulocytes % (auto) 2.6 %; Lymphocytes # (auto) 1.22 K/uL (1.2-3.4); Lymphocytes % (auto) 9.2 %; Mean Corpuscular Hemoglobin 33.7 pg (25-34); Mean Corpuscular Hgb Conc 35.1 g/dL (32-36); Mean Platelet Volume 10.9 fL (7.4-10.4); Monocytes # (auto) 1.54 K/uL (0.11-0.59); Monocytes % (auto) 11.6 %; Neutrophils # (auto) 10.09 K/uL (1.4-6.5); Neutrophils % (auto) 76.3 %; Platelet Count 181 K/uL (130-400); RDW Coefficient of Variation 13.4 % (11.5-14.5); RDW Standard Deviation 46.6 fL (36.4-46.3); Red Blood Count 3.71 M/uL (4.7-6.1); White Blood Count 13.23 K/uL (4.8-10.8)
--- NOTE | 2020-05-20 12:07 | XRay Report ---
XR chest 1V portable CLINICAL HISTORY: abd pain pain COMPARISON STUDY: 05/12/2020 FINDINGS: The bones soft tissues and hemidiaphragms are normal. The cardiomediastinal silhouette is n ormal. The lungs are clear. The pulmonary vasculature is normal. IMPRESSION: Negative chest. ACT 112: Negative or not required by law. The above report was generated using voice recognition software. It may contain grammatical, syntax or spelling errors. Electronically signed by: Campos Green M.D. 05/20/2020 12:05 PM
[2020-05-20 12:14] LABS: BUN Creatinine Ratio 14.6 (10-20); Calcium 9.3 mg/dl (8.5-10.1); Creatinine Clr Calc Pharmacy 19.7 ml/min; Est GFR (African American) 23.1; Est GFR (Non-African American) 19.9; Potassium 4.1 mmol/L (3.5-5.1)
[2020-05-20 12:22] LABS: Albumin Globulin Ratio 0.6 (0.9-2); Troponin I 0.052 ng/ml (0-0.045)
[2020-05-20 12:29] LABS: Appearance Urine Clear (Clear); Bacteria Urine Automated Negative (Negative); Bilirubin Urine Negative (Negative); Blood Urine 1+ (Negative); Color Urine Yellow; Glucose Urine UA Negative (Negative); Ketones Urine Negative (Negative); Leukocyte Esterase Urine Negative (Negative); Nitrite Urine Negative (Negative); Protein Urine Negative (Negative); RBC Urine Automated 0-4 /hpf (0-4); Specific Gravity Urine 1.013 (1.000-1.030); Urobilinogen Urine Negative (Negative)
[2020-05-20] MEDS ORDERED: SODIUM CHLORIDE 0.9% 1000ML 1,000 ML IV ONE (12:30)
--- NOTE | 2020-05-20 12:30 | Emergency Department Note ---
Impression & Plan Acute urinary retention, Obstructed, uropathy, Abnormal ECG, Elevated troponin I level ED Provider Note NAME: SMITHA BASURTO AGE: 79 SEX: M : 1940 ARRIVES VIA: Walk-In INFORMANT: Patient, ED PROVIDER(S): Jeremías Inman DO CHIEF COMPLAINT: Abdominal pain HPI: The patient is a 79-year-old male who presented to the emergency department for an evaluation of abdominal pain. The patient was recently diagnosed with prostatitis. He was admitted the hospital at that time. He was discharged to home and started noticing worsening left-sided abdominal pain. He called his primary care physician and was referred to the emergency department rather than coming to the office. The patient describes having diffuse abdominal pain as well as lower quadrant abdominal pain. Pain is worsened with any movement. The patient has been noticing decreased urine output. He denies having any fevers. He has nausea but no vomiting. He denies having any chest pain or difficulty breathing. The patient states that his pain is somewhat improved with lying flat. He denies having any hematuria. ROS: See above HPI for pertinent positives & negatives. A total of 10 systems reviewed and were otherwise negative. PAST MEDICAL HISTORY: See Below PAST SURGICAL HISTORY: See Below FAMILY HISTORY: See Below SOCIAL HISTORY: See Below HOME MEDICATIONS: See Below ALLERGIES: See Below VITALS: See Below PHYSICAL EXAMINATION: GENERAL: The patient is awake and alert. He is very anxious appearing and appears to be uncomfortable. EYES: The conjunctivae are clear. The pupils are round and reactive. EARS, NOSE, MOUTH AND THROAT: The nose is without any evidence of any deformity. Mucous membranes are moist. Tongue is midline. NECK: The neck is nontender and supple. RESPIRATORY: Normal respiratory effort is noted there is no evidence of wheezing rhonchi or rales CARDIOVASCULAR: Regular rate and rhythm noted there no murmurs rubs or gallops normal S1 normal S2. GASTROINTESTINAL: The abdomen is moderately distended. There appears to be a distended bladder to palpation. There is left lower quadrant tenderness to palpation but no guarding rigidity. MUSCULOSKELETAL/EXTREMITIES: There is no evidence of gross deformity full range of motion is noted in the hips and shoulders. SKIN: There is no obvious evidence of any rash. There are no petechiae, pallor or cyanosis noted. NEUROLOGIC: Patient is awake alert and oriented x3. MEDICAL DECISION MAKING: The patient is a 79-year-old male who presented to the emergency department for abdominal pain. The patient has a prostate infection that he was admitted to the hospital for recently. He is taking his outpatient antibiotics. He presents to the emergency department today after developing worsening pain. His history and physical exam appear to be consistent with urinary retention. This was noted on bladder scan. The patient was also found to have an elevated creatinine compared to his baseline. I do feel the patient has obstructive uropathy. A Smith catheter was ordered. I discussed the patient's laboratory and radiographic studies with him. I also discussed his case with the on-call [facility] hospitalist. They will evaluate the patient in the emergency department for further management and disposition. It does appear that the patient does have a chronically elevated troponin this could be secondary to his kidney function. His urinalysis does not appear to be consistent with infection at this time but his white blood cell count is elevated. I will defer further antibiotic treatment to the admitting team. The patient has been compliant with his outpatient antibiotic regimen at this time. Triage Nursing notes reviewed. Prior medical records reviewed Vital Signs: reviewed and remarkable for elevated blood pressure Differential diagnosis: Appendicitis, testicular torsion, infections, diverticulitis, UTI, obstruction, mesenteric ischemia, aortic pathology, inflammatory bowel disease, renal colic, PUD, pancreatitis, biliary pathology, hernia, volvulus, constipation, as well as other pathologies. ER treatment provided: See below Diagnostics interpreted by me: ECG: EKG was obtained in the emergency department. My interpretation is normal sinus rhythm at 70 bpm. There was no PVCs noted. There was some sinus arrhythmia noted. LVH was noted by voltage criteria. There was apical and low lateral ST depressions with T wave inversions noted. This was compared to a tracing from May 122019. No significant changes were noted. Cardiac Monitoring: An order was placed for continuous cardiac monitoring. The monitor shows a rate of 95 with sinus rhythm. Laboratory studies: As stated above and show below. Imaging studies: See below Consultation(s): 1245: I discussed this case with Dr. Benoit who is on-call for the [facility] hospitalist group. He will evaluate the patient in the emergency department for further management and disposition. 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 Beliefs That Will Affect Care: None marital status: Current Living Situation: Spouse Feels Safe at Home: Yes caffeine: Yes Seatbelt Use: always Allergies Allergies Allergy/AdvReac Type Severity Reaction Status Date / Time oxycodone [From Percodan] AdvReac Severe GI UPSET Verified 05/16/20 11:47 atorvastatin [From Lipitor] AdvReac Mild MUSCLE Verified 05/16/20 11:47 ACHES simvastatin [From Zocor] AdvReac Mild MUSCLE Verified 05/16/20 11:47 ACHES Home Meds Home Medications Medication Instructions Recorded Confirmed glucosamine-chondroitin 250 mg-200 1 tab PO DAILY tab 06/14/19 05/16/20 mg tablet lancets 30 gauge #25 ea 06/14/19 05/16/20 aspirin [Aspir-81] 81 mg PO QAM 05/12/20 05/16/20 glimepiride 1 mg PO QDD 05/12/20 05/16/20 lisinopril 2.5 mg PO QAM 05/12/20 05/16/20 pravastatin 10 mg PO HS 05/12/20 05/16/20 Previous Rx's Medication Instructions Recorded blood sugar diagnostic #100 ea 09/14/19 ciprofloxacin HCl 250 mg tablet 250 mg PO BID #20 tab 05/16/20 Results & Data (ED) Vital Signs Vital Signs - 24 hr 05/20/20 11:38 Temperature 36.9 C Temperature Source Oral Pulse Rate 80 Respiratory Rate 18 Blood Pressure 151/78 H Blood Pressure Mean 102 Pulse Oximetry 96 Oxygen Delivery Method Room Air Sepsis Recent Fever Within 48 Hours No Sepsis New/Unexplained Change in Mental Status N/A Sepsis Action Taken by Nursing No Action Required Home Medications Current Medication List: was personally reviewed by me Laboratory Data Attestation: I reviewed the patient's lab results. Result diagrams: 05/20/20 11:39 05/20/20 11:39 Lab Results 05/20/20 05/20/20 05/20/20 Range/Units 11:39 11:39 12:10 WBC 13.23 H (4.8-10.8) K/uL RBC 3.71 L (4.7-6.1) M/uL Hgb 12.5 L (14.0-18.0) g/dL Hct 35.6 L (42-52) % MCV 96.0 (80-100) fL MCH 33.7 (25-34) pg MCHC 35.1 (32-36) g/dL RDW Std Deviation 46.6 H (36.4-46.3) fL RDW Coeff of Gerry 13.4 (11.5-14.5) % Plt Count 181 (130-400) K/uL MPV 10.9 H (7.4-10.4) fL Immature Gran % (Auto) 2.6 % Neut % (Auto) 76.3 % Lymph % (Auto) 9.2 % [place] % (Auto) 11.6 % Eos % (Auto) 0.2 % Baso % (Auto) 0.1 % Neut # (Auto) 10.09 H (1.4-6.5) K/uL Lymph # (Auto) 1.22 (1.2-3.4) K/uL [place] # (Auto) 1.54 H (0.11-0.59) K/uL Eos # (Auto) 0.02 (0-0.5) K/uL Baso # (Auto) 0.01 (0-0.2) K/uL Immature Gran # (Auto) 0.35 H (0.00-0.02) K/uL Sodium 133 L (136-145) mmol/L Potassium 4.1 (3.5-5.1) mmol/L Chloride 103 (98-107) mmol/L Carbon Dioxide 20 L (21-32) mmol/L Anion Gap 10.0 (3-11) BUN 42 H (7-18) mg/dl Creatinine 2.89 H (0.6-1.4) mg/dl Est Cr Clr Drug Dosing 19.7 ml/min Est GFR ( Amer) 23.1 Est GFR (Non-Af Amer) 19.9 BUN/Creatinine Ratio 14.6 (10-20) Glucose 191 H (70-99) mg/dl Calcium 9.3 (8.5-10.1) mg/dl Total Bilirubin 1.0 (0.2-1) mg/dl AST 65 H (15-37) U/L ALT 42 (12-78) U/L Alkaline Phosphatase 182 H (45-117) U/L Troponin I 0.052 H* (0-0.045) ng/ml Total Protein 8.0 (6.4-8.2) gm/dl Albumin 3.0 L (3.4-5.0) gm/dl Globulin 5.0 H (2.5-4.0) gm/dl Albumin/Globulin Ratio 0.6 L (0.9-2) Lipase 125 (73-393) U/L Specimen Hemolysis Urine Color Yellow Urine Appearance Clear (Clear) Urine pH 5.0 (4.5-7.5) Ur Specific [place] 1.013 (1.000-1.030) Urine Protein Negative (Negative) Urine Glucose (UA) Negative (Negative) Urine Ketones Negative (Negative) Urine Blood 1+ H (Negative) Urine Nitrite Negative (Negative) Urine Bilirubin Negative (Negative) Urine Urobilinogen Negative (Negative) Ur Leukocyte Esterase Negative (Negative) Urine WBC (Auto) 1-5 (0-5) /hpf Urine RBC (Auto) 0-4 (0-4) /hpf U Hyaline Cast (Auto) 1-5 (0-5) /lpf U Epithel Cells (Auto) 5-10 H (0-5) /lpf Urine Bacteria (Auto) Negative (Negative) Administered Medications Fentanyl Citrate (Fentanyl Citrate) 50 mcg IV Q15M PRN PRN Reason: Pain Stop: 06/03/20 11:52 Last Admin: 05/20/20 12:31 Dose: 50 mcg Documented by: [id number] Sodium Chloride (Nss 1000ml) 1,000 mls @ 999 mls/hr IV .Q1H1M ONE Stop: 05/20/20 13:30 Last Admin: 05/20/20 12:33 Dose: 999 mls/hr Documented by: [id number] Discontinued Medications Ondansetron HCl (Zofran) 4 mg IV NOW STA Stop: 05/20/20 11:54 Last Admin: 05/20/20 12:31 Dose: 4 mg Documented by: [id number] Imaging Data Radiologist's Impression: XR chest 1V portable CLINICAL HISTORY: abd pain pain COMPARISON STUDY: 05/12/2020 FINDINGS: The bones soft tissues and hemidiaphragms are normal. The cardio mediastinal silhouette is normal. The lungs are clear. The pulmonary vasculature is normal. IMPRESSION: Negative chest. ACT 112: Negative or not required by law. The above report was generated using voice recognition software. It may contain grammatical, syntax or spelling errors. Electronically signed by: Campos Green M.D. 05/20/2020 12:05 PM Dictated: 05/20/20 1205 Transcribed: 05/20/20 1205 Blood Pressure Blood Pressure Findings: Elevated blood pressure Blood Pressure Disposition: further management by hospitalist Discharge Plan Visit Data Chief Complaint: Abdominal Pain Stated Complaint: ABD PAIN, CRAMPING ED Provider: Jeremías Inman Discharge Problem: Acute urinary retention, Obstructed, uropathy, Abnormal ECG, Elevated troponin I level Patient Disposition: Being Evaluated by Hospitalist Condition: Good Forms Stand Alone Forms: [facility] Prescriptions Prescriptions: No Action (DME) OneTouch Verio test strips strip See Rx Instructions .ROUTE .MEDSUPPLY Qty: 100 RF: 5 glucosamine-chondroitin 250-200 mg tablet 1 tab PO DAILY RF: 0 (DME) lancets [OneTouch Delica Lancets] 30 gauge misc See Dose Instructions .ROUTE .MEDSUPPLY Qty: 25 RF: 0 ciprofloxacin HCl 250 mg tablet 250 mg PO BID Qty: 20 RF: 0 glimepiride 1 mg tablet 1 mg PO QDD RF: 0 pravastatin 10 mg tablet 10 mg PO HS RF: 0 aspirin [Aspir-81] 81 mg Tablet,Delayed Release (Dr/Ec) 81 mg PO QAM RF: 0 lisinopril 2.5 mg tablet 2.5 mg PO QAM RF: 0 Referrals Referrals: Shaheen Amin DO [Primary Care Provider] -
[2020-05-20 12:49] LABS: INR 1.1 (0.9-1.1); Partial Thromboplastin Ratio 1.1; Partial Thromboplastin Time 29.9 Seconds (21.0-31.0); Prothrombin Time 11.9 Seconds (9.0-12.0)
--- NOTE | 2020-05-20 12:51 | History & Physical Report ---
Date of Service May 20, 2020 Assessment & Plan (1) Acute kidney injury: Likely obstructive in nature given the urinary retention and need for asencio in the ER. U/a without casts. no recent hypotension to suggest pre-renal causes. Cont asencio. Hydrate with 2 L NS. Repeat BMP in am. Start flomax for BPH. Baseline Cr is about 1.8. (2) Acute urinary retention: 2nd BPH in setting of recent UTI. SURENDRA today not c/w prostatitis. s/p asencio placement. Serial BMP. Flomax. Will likely need asencio for about 7 days then voiding trial. Urine culture sent. Continue antibiotics. (3) Obstructed, uropathy: 2nd to BPH. as below. (4) BPH loc w urin obs/LUTS: start flomax. asencio. urology f/u after discharge. (5) Prostate nodule: left-side of prostate. urology f/u post-d/c. (6) UTI (urinary tract infection): 05/12/20 culture was negative. Given ongoing urinary symptoms despite recent bactrim then cipro will obtain repeat urine culture. IV rocephin in meantime. Due to chills in the ER I obtained 2 sets of blood cultures. (7) Retroperitoneal lymphadenopathy: Highly concerning for lymphoma process. Due to presence of abdominal pain on exam today will repeat his abdominal/pelvic CT w/ oral contrast and also obtain a chest CT. I spoke with Dr Duncan from oncology who will consult tomorrow. Check LDH level. Likely to need excisional lymph node biopsy for definitive diagnosis. (8) Stage III chronic kidney disease: baseline Cr about 1.8 now w/ superimposed JULISA repeat BMP in am asencio fluids flomax (9) Abnormal ECG: ischemic changes in inferior leads and anterolateral leads. has baseline dyspnea on exertion and had mild chest discomfort yesterday. apparently had silent [place] in the early 1970s but no formal cardiology follow-up in many years. repeat troponin tonight. obtain echo to evaluate LV wall motion. may need cardiology consult. cont aspirin. ideally should be on beta kadie. statin held due to abnormal LFTs. (10) Elevated troponin I level: likely myocardial demand ischemia in setting of JULISA, UTI, etc. repeat troponin later tonight. noted that during previous hospital stay his troponins were minimally elevated then, too. echo. telemetry. (11) Elevated LFTs: uncertain etiology. were elevated 1 week ago during hospitalization. hold statin. repeat in 48 hours. (12) Generalized weakness: likely multifactorial including suspected UTI, acute kidney injury, mild dehydration, poor oral intake, and concern for lymphoma process. PT, OT. (13) CAD (coronary artery disease): "silent" WA early . no cardiology f/u since then. EKG noted - ischemic changes present - obtain echo. may need formal cardiology consult while here. 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 novolog sliding scale. may need basal lantus as well. DM diet. (15) Dyslipidemia: hold statin due to abnormal LFTs (16) Hypertension: cont home meds (17) Leg length discrepancy: 2nd to right-sided congenital hip dysplasia would benefit from built-up orthotic shoe I gave him name/number for Joseph Huff (18) DVT prophylaxis: heparin 5000 BID extensively updated at bedside History of Present Illness Chief Complaint: abdominal pain Primary Care Provider: Shaheen Amin, 79yo male with recent hospitalization for suspected prostatitis presents today because of severe pressure of his lower abdomen along with pain. Over the last few days he has had urinary frequency and severe nocturia. With voiding he is only passing small amounts of urine. No fever. No chills. noted at home that his abdomen was distended. In the ER he was bladder scanned for 700cc. Asencio was placed; he had instant relief of lower abdominal pain and pressure (from 11/10 on pain scale to 3-4/10). For the last 2 months he has had severe early satiety. With just a few bites of food he is filled up. He has had 10-15 pounds of weight loss over the last few months. He has had nausea but no vomiting. Excessive burping/belching. After his hospital stay for prostatitis he was discharged home on bactrim. This was changed to cipro by family medicine during a follow-up appointment because of significant diarrhea from the bactrim. The diarrhea improved with the above changes. Allergies Allergy/AdvReac Type Severity Reaction Status Date / Time oxycodone [From Percodan] AdvReac Severe GI UPSET Verified 05/20/20 14:22 atorvastatin [From Lipitor] AdvReac Mild MUSCLE Verified 05/20/20 14:22 ACHES simvastatin [From Zocor] AdvReac Mild MUSCLE Verified 05/20/20 14:22 ACHES Home Medications Home Medications Medication Instructions Recorded Confirmed Type glucosamine-chondroitin 250 mg-200 1 tab PO DAILY tab 06/14/19 05/20/20 History mg tablet aspirin [Aspir-81] 81 mg PO QAM 05/12/20 05/20/20 History glimepiride 1 mg PO QDD 05/12/20 05/20/20 History lisinopril 2.5 mg PO QAM 05/12/20 05/20/20 History pravastatin 10 mg PO HS 05/12/20 05/20/20 History ciprofloxacin HCl 250 mg tablet 250 mg PO BID #20 tab 05/16/20 05/20/20 Rx Past Med/Surg History Medical History (Updated 05/20/20 @ 21:26 by Nilson Benoit) Anemia (Chronic) Aortic atherosclerosis Arteriosclerotic coronary artery disease CAD (coronary artery disease) 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 Has declined repeat Colonoscopy per records History of strabismus surgery Family History (Updated 05/20/20 @ 13:09 by Nilson Benoit) Father Heart disease from CHF Mother Rheumatoid arthritis History of aortic valve replacement Grandmother (Paternal) Diabetes Aunt Diabetes Social History (Updated 05/20/20 @ 13:08 by Nilson Benoit) Smoking Status: Former smoker packs per day: 0.5; Smoking End Date: 1969; Number of Years Since Quit: 50; Second Hand Exposure: No; Hx Alcohol Use: No Hx Substance Use: No Preferred Language: Uzbek Communication Ability: Effective Visual Impairment: No Limitations Hearing Ability: Normal Mercantile Agent Required: No Beliefs That Will Affect Care: None marital status: Current Living Situation: Spouse current occupational status: retired 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 How many Children do You have: 2 Other Information That Helps Us Care for You: No other: live in [facility] Feels Safe at Home: Yes Safety Concerns: Feels Safe At This Time caffeine: Yes Seatbelt Use: always Review of Systems Constitutional: + fatigue (x 2 months ), + anorexia and + weight loss; no fever and no chills Eyes: no worsening vision Ear, Nose, Mouth, Throat: no sore throat and no dysphagia loss of taste or smell Respiratory: + dyspnea on exertion (for 1 month ); no cough Cardiovascular: + chest pain (1 week ago - after his hospital stay ) and + edema (ankles ) Gastrointestinal: + abdominal pain, + nausea and + diarrhea/loose stools; no vomiting, no blood in stools and no melena Genitourinary: + difficulty urinating, + urinary frequency and + nocturia; no dysuria and no hematuria Musculoskeletal: + joint pain (right hip pain - chronic ) Integumentary: no rash Neurologic: + generalized weakness and + restless legs Psychiatric: no depression Endocrine: high BSGs - 130 fasting average Hematologic / Lymphatic: no lymphadenopathy and no night sweats Physical Exam Constitutional: + acute distress (having mild chills); no altered mental status Eyes: PERRL ENMT: Mouth: + oropharynx abnormality (mild erythema ) and + dry oral mucous membranes Neck: trachea midline, no thyromegaly Respiratory: normal respiratory effort, lungs clear to auscultation Cardiovascular: Rate/Rhythm: regular rate and regular rhythm Heart Sounds: normal S1 and normal S2; no murmur Vessels: posterior tibial pulses present and dorsalis pedis pulses present; no JVD Extremities: no edema Gastrointestinal (Abdomen): normal bowel sounds, soft, nontender, no hepatosplenomegaly Inspection/Auscultation: abdomen not distended SURENDRA - chaperoned by nursing staff - prostate not boggy or tender; firm nodule left lobe, right lobe without nodule. mild gross enlargement. hemorrhoid present, nontender, at 6 o'clock. no gross blood or rectal masses. Musculoskeletal: leg-length discrepency, right leg much shorter than left leg Skin: no rashes, warm and dry Neurologic: deep tendon reflexes 2+ bilaterally and moves all extremities Psychiatric: Orientation: alert and oriented x 3 Affect: + irritable affect Genitourinary: asencio in place Lymphatic: left supraclavicular node palpable, about 1.5cm Results & Data Results & Data ([facility]) Vital Signs (Past 12 Hours) Vital Signs Temp Pulse Resp BP Pulse Ox 05/20/20 11:38 36.9 C 80 18 151/78 H 96 Laboratory Results Laboratory Results - last 24 hr 05/20/20 05/20/20 05/20/20 11:39 11:39 11:39 WBC 13.23 H RBC 3.71 L Hgb 12.5 L Hct 35.6 L MCV 96.0 MCH 33.7 MCHC 35.1 RDW Std Deviation 46.6 H RDW Coeff of Gerry 13.4 Plt Count 181 MPV 10.9 H Immature Gran % (Auto) 2.6 Neut % (Auto) 76.3 Lymph % (Auto) 9.2 Park % (Auto) 11.6 Eos % (Auto) 0.2 Baso % (Auto) 0.1 Neut # (Auto) 10.09 H Lymph # (Auto) 1.22 Park # (Auto) 1.54 H Eos # (Auto) 0.02 Baso # (Auto) 0.01 Immature Gran # (Auto) 0.35 H PT 11.9 INR 1.1 APTT 29.9 PTT Ratio 1.1 Sodium 133 L Potassium 4.1 Chloride 103 Carbon Dioxide 20 L Anion Gap 10.0 BUN 42 H Creatinine 2.89 H Est Cr Clr Drug Dosing 19.7 Est GFR ( Amer) 23.1 Est GFR (Non-Af Amer) 19.9 BUN/Creatinine Ratio 14.6 Glucose 191 H POC Glucose Calcium 9.3 Total Bilirubin 1.0 AST 65 H ALT 42 Alkaline Phosphatase 182 H Troponin I 0.052 H* Total Protein 8.0 Albumin 3.0 L Globulin 5.0 H Albumin/Globulin Ratio 0.6 L Lipase 125 Specimen Hemolysis Urine Color Urine Appearance Urine pH Ur Specific [place] Urine Protein Urine Glucose (UA) Urine Ketones Urine Blood Urine Nitrite Urine Bilirubin Urine Urobilinogen Ur Leukocyte Esterase Urine WBC (Auto) Urine RBC (Auto) U Hyaline Cast (Auto) U Epithel Cells (Auto) Urine Bacteria (Auto) 05/20/20 05/20/20 12:10 17:51 WBC RBC Hgb Hct MCV MCH MCHC RDW Std Deviation RDW Coeff of Gerry Plt Count MPV Immature Gran % (Auto) Neut % (Auto) Lymph % (Auto) Park % (Auto) Eos % (Auto) Baso % (Auto) Neut # (Auto) Lymph # (Auto) Park # (Auto) Eos # (Auto) Baso # (Auto) Immature Gran # (Auto) PT INR APTT PTT Ratio Sodium Potassium Chloride Carbon Dioxide Anion Gap BUN Creatinine Est Cr Clr Drug Dosing Est GFR ( Amer) Est GFR (Non-Af Amer) BUN/Creatinine Ratio Glucose POC Glucose 196 H Calcium Total Bilirubin AST ALT Alkaline Phosphatase Troponin I Total Protein Albumin Globulin Albumin/Globulin Ratio Lipase Specimen Hemolysis Urine Color Yellow Urine Appearance Clear Urine pH 5.0 Ur Specific [place] 1.013 Urine Protein Negative Urine Glucose (UA) Negative Urine Ketones Negative Urine Blood 1+ H Urine Nitrite Negative Urine Bilirubin Negative Urine Urobilinogen Negative Ur Leukocyte Esterase Negative Urine WBC (Auto) 1-5 Urine RBC (Auto) 0-4 U Hyaline Cast (Auto) 1-5 U Epithel Cells (Auto) 5-10 H Urine Bacteria (Auto) Negative Diagnostic Findings cxr: no acute findings EKG: my reading -- NSR, RBBB, LAFB, marked ST depressions V3-V6; inferior leads with ST depressions as well Code Status & VTE Plan Code Status full VTE Prophylaxis Plan VTE Prophylaxis will be ordered: Yes PG Care Time/CCT Total # of Minutes Spent Total Time Spent with Patient: Total time spent is greater than 50% in coordination of care (as documented) at patient's floor/unit and/or counseling patient: Coding Level of Care Code 10848 Initial Inpt Care Lvl 3 Diagnoses Acute kidney injury N17.9 Acute urinary retention R33.8 Obstructed, uropathy N13.9 BPH loc w urin obs/LUTS N40.1 Prostate nodule N40.2 UTI (urinary tract infection) N30.01 Hematuria presence: with hematuria Urinary tract infection type: acute cystitis Retroperitoneal lymphadenopathy R59.0 Stage III chronic kidney disease N18.3 Abnormal ECG R94.31 Elevated troponin I level R79.89 Elevated LFTs R79.89 Generalized weakness R53.1 CAD (coronary artery disease) I25.10 Diabetes mellitus with renal complications E11.29 Dyslipidemia E78.5 Hypertension I10 Leg length discrepancy M21.70 DVT prophylaxis Z29.9 (1) UTI (urinary tract infection) Hematuria presence: with hematuria Urinary tract infection type: acute cystitis Qualified Code(s): N30.01 - Acute cystitis with hematuria
[2020-05-20] MEDS ORDERED: cefTRIAXone SODIUM 2,000 MG/70 ML BAG IV STA (13:45)
[2020-05-20] MEDS ORDERED: MoRPHine SULFATE 2 MG/ML CARP IV PRN (16:19)
[2020-05-20] MEDS ORDERED: TAMSULOSIN HCL 0.4 MG CAP PO ONE (16:19)
[2020-05-20] MEDS ORDERED: ONDANSETRON INJ 2 MG/ML 2 ML VIAL IV PRN (16:19)
[2020-05-20] MEDS ORDERED: GLUCOSE 40% GEL 15 GM TUBE PO PRN (16:30)
[2020-05-20] MEDS ORDERED: DEXTROSE 50% 50 ML SYRINGE IV PRN (16:30)
[2020-05-20] MEDS ORDERED: GLUCAGON FOR INJ 1 MG VIAL IM PRN (16:30)
[2020-05-20] MEDS ORDERED: GLUCOSE 10 TABS/TUBE PO PRN (16:30)
[2020-05-20] MEDS ORDERED: CARBOHYDRATES FOR HYPOGLYCEMIA PO PRN (16:30)
--- NOTE | 2020-05-20 17:37 | CT Scan Report ---
CT SCAN OF THE CHEST, ABDOMEN, AND PELVIS WITHOUT IV CONTRAST CLINICAL HISTORY: Lower abdominal pain. Lymphadenopathy. COMPARISON STUDY: Chest x-ray dated 05/20/2020. Abdominal CT dated 05/12/2020 and 09/06/2016. TECHNIQUE: CT scan of the chest, abdomen, and pelvis was performed from the thoracic inlet to the pro ximal femora. Images are reviewed in the axial, sagittal, and coronal planes. IV contrast was not adm inistered for this examination. Note that the examination was performed in suboptimal fashion without IV contrast. Oral contrast was utilized. A dose lowering technique was utilized adhering to the prin ciples of REUBEN. CT DOSE: 579.01 mGy.cm FINDINGS: CHEST: Thyroid: The thyroid gland is enlarged and heterogeneous. Thoracic aorta: There is mild atherosclerotic calcification of the thoracic aorta, which is normal in caliber and demonstrates there 3-vessel arch anatomy. There is a bovine arch, and the left vertebral artery arises directly from the thoracic aorta. Heart: The heart is normal in size and without pericardial effusion. The coronary arteries are densel y calcified. Lungs and pleural spaces: There is no airspace consolidation or pleural effusion. The trachea and sangita tral airways are clear. A 4 mm pleural-based nodule in the left lower lobe as seen on image #179. Thi s has modestly increased in size as compared to 2016. There are 2 left apical nodules which measure u p to 3 mm as seen on image #52 and #58. A 3 mm left upper lobe nodule is seen on image #106, and a 3 mm pleural-based nodule in the right upper lobe is seen on image #94. Lower neck: Mildly enlarged left supraclavicular nodes measure up to 11 mm in short axis. Mediastinum: A node in the superior mediastinum on image #43 measures 2.8 x 2.0 cm. No additional enl arged mediastinal lymph nodes are identified. Karo: Not well assessed without IV contrast. Axillae: There is no axillary lymphadenopathy. Bony thorax: The skeletal structures are osteopenic. The skeletal structures are osteopenic. Mild deg enerative change is seen throughout the thoracic spine. There is a mild acute superior endplate compr ession fracture of T11. This is new from 05/12/2020. No lytic or blastic lesions are identified. ABDOMEN AND PELVIS: Liver: The unenhanced liver is normal in size, contour, and attenuation. There is no intra- or extrah epatic biliary ductal dilatation. 9 mm right lobe cyst is incidentally noted. Gallbladder: There are calcified gallstones with no CT evidence of acute cholecystitis. Spleen: Normal in size and attenuation measuring 8 cm in length. Pancreas: The unenhanced pancreas is moderately atrophic and grossly unremarkable. Adrenal glands: Unremarkable. Kidneys: The unenhanced kidneys demonstrate cortical atrophy and are without hydronephrosis. There is mild distention of both ureters. No renal calculi are identified. There is no evidence of contour de forming mass lesion. Abdominal vasculature: The abdominal aorta is normal in course and caliber. Stomach and bowel: There is a small hiatal hernia. No bowel obstruction is seen. Enteric contrast lilly ches the distal colon. There is mild to moderate colonic diverticulosis without CT evidence of acute diverticulitis. The appendix is well-visualized and normal. Peritoneum: There is no intraperitoneal free air or abdominal ascites. Lymphadenopathy: There are numerous mildly enlarged retroperitoneal lymph nodes which measure up to 1 3 mm short axis (axial image #172). Numerous perirectal lymph nodes measure up to 11 mm in length. Th ere are also enlarged iliac chain nodes. A left iliac chain node on image #297 measures 2.2 x 1.2 cm. There is no upper abdominal or mesenteric lymphadenopathy. No pelvic sidewall or inguinal adenopathy is seen. Pelvic viscera: The bladder is decompressed and a Smith catheter. Intraluminal gas is noted. The blad arianne wall is thickened and there is pericystic inflammation. The prostate gland is mildly enlarged and heterogeneous. There is asymmetric atrophy of the right iliopsoas musculature. Skeletal structures: The skeletal structures are osteopenic. Advanced arthritic changes noted in the right hip with near complete loss of the joint space. There is pseudoarticulation of the right hip wi th the right bony pelvis with surrounding bursal fluid. There is moderate to advanced lumbosacral spo ndylosis and mild scoliosis. A mild chronic compression deformity of L4 is similar to previous. No ly tic or blastic lesions are seen. IMPRESSION: 1. Suboptimal examination without IV contrast. 2. There is a mild acute superior endplate compression fracture of T12. Clinical correlation will be required. 3. There is no airspace consolidation or pleural effusion. 4. The bladder is decompressed around a Smith catheter. The bladder wall appears thickened there is p ericystic inflammation. Correlation with clinical findings and urinalysis will be required. 5. There are numerous mildly enlarged perirectal, iliac chain, and retroperitoneal lymph nodes. These are pathologically indeterminant, and a neoplastic etiology is not excluded. 6. There is an enlarged lymph node in the superior mediastinum as well as mildly enlarged left suprac lavicular lymph nodes. These are also pathologically indeterminant. 7. There are scattered low suspicion subcentimeter pulmonary nodules measuring up to 4 mm. These can be followed if clinically warranted as per the Fleischner criteria. See below. 8. Cholelithiasis. 9. Colonic diverticulosis without CT evidence of acute diverticulitis. 10. Additional findings as above. Please refer to below summary of Fleischner criteria recommendations for follow-up of incidental CT n odules (Regine Ruvalcaba, Guidelines for management of small pulmonary nodules detected on CT scans: A sta tement from the Fleischner Society, Radiology 237: [phone].) SOLID NODULES Solitary nodule size: <6 mm * low risk patients: no follow-up needed * high risk patients: optional CT at 12 months Solitary nodule size: 6-8 mm * low risk patients: follow-up at 6-12 months, then consider further follow-up at 18-24 months * high risk patients: initial follow-up CT at 6-12 months and then at 18-24 months if no change Solitary nodule size: >8 mm * either low or high risk patients - consider follow-up CT at 3 months, and/or CT-PET, and/or biopsy Multiple nodules size: <6 mm * low risk patients: no routine follow-up * high risk patients: optional CT at 12 months Multiple nodules size: 6-8 mm * low risk patients: follow-up at 3-6 months, then consider further follow-up at 18-24 months * high risk patients: follow-up at 3-6 months, then at 18-24 months if no change Multiple nodules size: >8 mm * low risk patients: follow-up at 3-6 months, then consider further follow-up at 18-24 months * high risk patients: follow-up at 3-6 months, then at 18-24 months if no change Note: newly detected indeterminate nodule in persons 35 years of age or older. * low risk patients: minimal or absent history of smoking and/or other known risk factors * high risk patients: history of smoking or of other known risk factors (e.g. first degree relative with lung cancer, or exposure to asbestos, radon, uranium) * if a nodule up to 8 mm is partly solid or is ground glass further follow-up is required after 24 m onths to exclude possible slow growing adenocarcinoma (CORDELIA) SUBSOLID NODULES Solitary pure ground-glass nodule * nodule size <6 mm - no CT follow-up required * nodule size >=6 mm - follow-up CT at 6-12 months, then every 2 years until 5 years Solitary part-solid nodule * nodule size <6 mm - no CT follow-up required * nodule size >=6 mm - follow-up CT at 3-6 months. If unchanged, and solid component remains <6 mm, then annual follow-up for 5 years Multiple subsolid nodules * nodule size <6 mm - follow-up CT at 3-6 months, consider further follow-up at 2 and 4 years if sta ble * nodule size >=6 mm - follow-up CT at 3-6 months, subsequent management based on the most suspiciou s nodule(s) ACT 112: Negative or not required by law. Electronically signed by: Pancho Ceballos M.D. 05/20/2020 5:35 PM
[2020-05-20] MEDS: PANTOprazole 40 MG TAB PO SCH (18:12)
[2020-05-20] MEDS: SODIUM CHLORIDE 0.9% 1000ML 1,000 ML IV SCH (18:12)
[2020-05-20] MEDS: INSULIN ASPART 100 UNITS/ML 3 ML PEN SC SCH ×2 (18:14→21:59)
[2020-05-20] MEDS: SUCRALFATE 1 GM/10 ML UDC PO SCH ×2 (18:14→21:17)
--- NOTE | 2020-05-20 19:19 | XCELERA ---
[id number] \\ODO-ECRP-CTA\PDF_Reports\[id number]
[2020-05-20] MEDS: HEPARIN SOD 5,000 UNIT/0.5 ML VIAL SQ SCH (21:17)
[2020-05-21] MEDS: SODIUM CHLORIDE 0.9% 1000ML 1,000 ML IV SCH (07:42)
[2020-05-21] MEDS: INSULIN ASPART 100 UNITS/ML 3 ML PEN SC SCH ×4 (08:18→20:58)
[2020-05-21] MEDS: SUCRALFATE 1 GM/10 ML UDC PO SCH ×2 (08:18→12:23)
[2020-05-21] MEDS: ASPIRIN 81 MG ECTAB PO SCH (08:19)
[2020-05-21] MEDS: HEPARIN SOD 5,000 UNIT/0.5 ML VIAL SQ SCH ×2 (08:19→20:58)
[2020-05-21] MEDS: TAMSULOSIN HCL 0.4 MG CAP PO SCH (08:19)
[2020-05-21] MEDS: PANTOprazole 40 MG TAB PO SCH (08:20)
[2020-05-21 10:19] LABS: Basophils # (auto) 0.01 K/uL (0-0.2); Basophils % (auto) 0.1 %; Eosinophils # (auto) 0.04 K/uL (0-0.5); Eosinophils % (auto) 0.5 %; Immature Granulocytes # (auto) 0.34 K/uL (0.00-0.02); Immature Granulocytes % (auto) 4.3 %; Lymphocytes # (auto) 1.03 K/uL (1.2-3.4); Lymphocytes % (auto) 12.9 %; Mean Corpuscular Hemoglobin 33.1 pg (25-34); Mean Corpuscular Hgb Conc 34.5 g/dL (32-36); Mean Platelet Volume 10.4 fL (7.4-10.4); Monocytes # (auto) 0.88 K/uL (0.11-0.59); Neutrophils # (auto) 5.69 K/uL (1.4-6.5); Neutrophils % (auto) 71.2 %; Platelet Count 143 K/uL (130-400); RDW Coefficient of Variation 13.4 % (11.5-14.5); RDW Standard Deviation 46.7 fL (36.4-46.3); Red Blood Count 3.02 M/uL (4.7-6.1); White Blood Count 7.99 K/uL (4.8-10.8)
--- NOTE | 2020-05-21 10:28 | Consultation Report ---
DATE OF CONSULTATION: 05/21/2020 REASON FOR CONSULTATION: Lymphadenopathy. HISTORY OF PRESENT ILLNESS: The patient is a pleasant 79-year-old gentleman who was admitted to the hospitalist service to [facility] on 05/20/2020 with the chief complaint of generalized asthenia/fatigue and urinary retention. The patient was hospitalized a little over a week ago for a suspected prostatitis and presented to our Emergency Room with severe intrapelvic pressure and pain. Over the past couple of days, he admits to nocturia and urinary frequency. In the Emergency Room, his bladder was scanned with a residual of 700 mL. Smith catheter was placed, which provided instantaneous relief. He also complains over the past couple of months to losing 10-15 pounds associated with early satiety. I was contacted by the admitting hospitalist alerting me to this gentleman's CT scan specifically numerous mildly enlarged perirectal common iliac chain and retroperitoneal lymph nodes. There is also an enlarged lymph node noted in the superior mediastinum as well as left supraclavicular region. The patient denies any overt B symptoms. Alerted the patient to the fact that the radiographic evidence points to a possible lymphoproliferative or neoplastic process and ultimately tissue would be required to confirm diagnosis. PAST MEDICAL HISTORY: Chronic anemia, atherosclerotic coronary artery disease, osteoarthritis, diabetes mellitus, dyslipidemia, hypertension, myocardial infarct, osteopenia, stage III chronic kidney disease, thrombocytopenia, type 2 diabetes mellitus, and vitamin D deficiency. PAST SURGICAL HISTORY: Includes colonoscopy. MEDICATIONS: Prior to admission included ciprofloxacin 250 mg p.o. b.i.d., pravastatin 10 mg p.o. daily, lisinopril 2.5 mg p.o. daily, glyburide 1 mg p.o. every other day, aspirin 81 mg p.o. daily, glucosamine chondroitin sulfate 1 tablet p.o. every day. ALLERGIES: SIMVASTATIN, ATORVASTATIN AND OXYCODONE. FAMILY HISTORY: Father attributable to congestive heart failure. Mother suffered from rheumatoid arthritis, history of aortic valve replacement and a paternal grandmother suffered from diabetes mellitus as well as an aunt also with diabetes. SOCIAL HISTORY: The patient is retired and lives with his spouse. He is a nonsmoker, nondrinker. REVIEW OF SYSTEMS: CONSTITUTIONAL: Positive for fatigue/asthenia. Positive for anorexia, weight loss as described in the HPI. No fevers, chills or sweats. HEENT: Negative for headaches, lightheadedness or dizziness. No acute visual or hearing deficits. No sinus symptoms, sore throat or dysphagia. LYMPH: No history of lymphoproliferative disease. CARDIAC: Positive history of coronary artery disease. No current angina or palpitations. PULMONARY: Negative for COPD. No shortness of breath, dyspnea or orthopnea. No cough or hemoptysis. GASTROINTESTINAL: Negative for abdominal pain. No nausea, vomiting, diarrhea or constipation, hematochezia or melena stools. GENITOURINARY: Positive for nocturia, dysuria and urinary frequency. ENDOCRINE: Positive for diabetes mellitus, negative for thyroid disease. MUSCULOSKELETAL: No focal muscle weakness. No arthralgias. NEUROLOGIC: Negative for seizure, stroke, or migraine headache. HEMATOLOGIC: Positive for leukocytosis and borderline anemia. PHYSICAL EXAMINATION: GENERAL: Very pleasant, somewhat depressed 79-year-old gentleman in no acute distress. VITAL SIGNS: Temperature 36.6, pulse 67, respiratory rate 18, blood pressure 117/63. SKIN: Warm, dry, noncyanotic without petechia, rash or ecchymosis. HEENT: Atraumatic normocephalic. Eyes: PERRLA, EOMI. Sclerae nonicteric. Nares patent without rhinorrhea or discharge. Throat is clear. Tongue midline. Mucous membranes are moist. NECK: Supple without JVD or thyromegaly. LYMPHATICS: No cervical or supraclavicular palpable nodes. HEART: Regular rate and rhythm. No clicks, rubs, murmurs or gallops. LUNGS: Clear to auscultation bilaterally. ABDOMEN: Soft, nontender, nondistended, without palpable hepatosplenomegaly. EXTREMITIES: No calf tenderness or swelling. No clubbing, cyanosis or edema. MUSCULOSKELETAL: Strength and pulses are equal in all 4 quadrants. NEUROLOGICALLY: He is awake, alert and oriented x3. Cranial nerves are grossly intact. LABORATORY DATA: WBC count 13,230, hemoglobin 12.5, platelet count 181,000. Sodium 133, potassium 4.1, chloride 103, carbon dioxide 20, creatinine 2.89, BUN 42, alkaline phosphatase 182. Globulin 5, albumin 3.0. IMPRESSION: 1. General decline/ischemia. 2. Anorexia/weight loss. 3. Nonspecific lymphadenopathy. 4. Chronic renal insufficiency. 5. Diabetes mellitus. PLAN: The patient is a very pleasant 79-year-old gentleman who was recently admitted to [facility] returning from previous hospitalization a week prior with increased suprapubic lower abdominal pressure and pain, frequent urination and urinary retention. I was alerted by Dr. Benoit, the admitting hospitalist to this gentleman's CT scan, which demonstrate diffuse lymphadenopathy scattered throughout the pelvis, retroperitoneum, mediastinum and left supraclavicular regions. At first glance, there is a high degree of suspicion for a progressive lymphoproliferative or neoplastic process. Tissue will be required to confirm diagnosis suggest a general surgery consult for left lymph node extraction peripherally if possible. With this gentleman's urinary issues; however, I would spot check PSA with his history of prostatitis, as i suspect PSA may be elevated. However, his lymphatic distribution while not classic for prostate cancer cannot be exclusively ruled out. Agree with medical management otherwise and will await confirmation of diagnosis before reengaging. Thank you very much for allowing me to participate in this gentleman's care. If you have any questions or concerns, feel free to contact me at any time. BECKY
[2020-05-21 10:43] LABS: BUN Creatinine Ratio 13.6 (10-20); Calcium 7.9 mg/dl (8.5-10.1); Creatinine Clr Calc Pharmacy 27.5 ml/min; Est GFR (African American) 34.5; Est GFR (Non-African American) 29.8; Potassium 3.6 mmol/L (3.5-5.1)
[2020-05-21 10:51] LABS: Prostate Specific Antigen 19.2 ng/ml (0-4); Troponin I 0.068 ng/ml (0-0.045)
--- NOTE | 2020-05-21 13:02 | Hospitalist Progress Note ---
Date of Service May 21, 2020 Assessment & Plan (1) Acute kidney injury: Likely obstructive in nature given the urinary retention and need for asencio in the ER. U/a without casts. no recent hypotension to suggest pre-renal causes. Creatinine is now back to baseline at 2.0 after placement of Asencio catheter which relieved his obstruction as well as hydration with normal saline Continues with a mild non-anion gap metabolic acidosis-he has had diarrhea which could cause this Cont asencio. DC IV fluids Start flomax for BPH. Follows with nephrology as an outpatient -Follow BMP in the morning (2) Acute urinary retention: With nocturia and urinary frequency ongoing for the last month, much worse in the last week. Admitted with presumed prostatitis 1 week ago and treated with antibiotics. Presented with significant abdominal pain and was found to be retaining 700 mL's of urine on admission this time Admitting physician's SURENDRA was not c/w prostatitis, but there was a nodule palpated. Now s/p asencio placement. Maintain Asencio catheter for now and await urology input CT of the abdomen/pelvis shows enlarged heterogenous prostate gland. UA this time not consistent with infection, however he has been on both Bactrim and then Cipro as an outpatient -Continue IV Rocephin for now -Awaiting urology consultation-of note, patient not sure that he wishes to undergo cystoscopy at this time but he will think about it (3) Obstructed, uropathy: As above -Continue Flomax (4) Prostate nodule: left-side of prostate. urology consultation placed PSA 19 but was drawn in the setting of recent SURENDRA and recent presumed acute prostatitis Also with elevated alkaline phosphatase which is concerning for bony metastases although none noted on imaging (5) UTI (urinary tract infection): 05/12/20 culture was negative. Given ongoing urinary symptoms despite recent bactrim then cipro will obtain repeat urine culture. Continue IV rocephin in meantime. Due to chills in the ER, 2 sets of blood cultures were obtained-no growth to date. (6) Retroperitoneal lymphadenopathy: Retroperitoneal lymphadenopathy plus iliac chain plus left supraclavicular lymphadenopathy and superior mediastinal lymphadenopathy highly concerning for lymphoma process versus metastatic disease from the prostate. LDH significantly elevated at 900 and alkaline phosphatase also elevated in the 200s Appreciate hematology/oncology consultation-recommends excisional lymph node biopsy for definitive diagnosis Patient declining lymph node biopsy at this time, but will consider for in the future (7) Abnormal ECG: ischemic changes in inferior leads and anterolateral leads. 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 Troponins are mildly elevated but stable at 0.063 Echo here with severe inferior inferolateral hypokinesis and abnormal septal motion consistent with conduction abnormality, mild-moderate MR Patient denies any exertional chest pain He had a cardiac catheterization in 1996 that apparently showed 3 arteries with 30% stenoses, but no intervention performed at that time He thinks he had a nuclear stress test over 10 years ago that was also normal Appreciate cardiology consultation-recommends cont aspirin and starting a beta- kadie, however patient declines to do this at this time. -Statin held due to abnormal LFTs and patient declines to increase to high intensity dosage. He has had issues with other statins in the past. -Would not perform cardiac catheterization at this time due to chronic kidney disease, but would consider doing nuclear perfusion scan as an outpatient, however patient also wants to think about this before deciding to do it -Continue to monitor on telemetry (8) Elevated troponin I level: likely myocardial demand ischemia in setting of JULISA, UTI, etc. As above (9) Elevated LFTs: With elevated AST and alkaline phosphatase on admission which are improved from 1 week ago As noted above, could be secondary to possible metastases No abnormalities noted on the liver on imaging -Follow LFTs in the morning -Continue to hold statin (10) Generalized weakness: likely multifactorial including suspected UTI, acute kidney injury, mild dehydration, poor oral intake, and concern for lymphoma versus other malignant process. PT, OT. (11) CAD (coronary artery disease): "silent" CO early . 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 With some occasional hyperglycemia here Hemoglobin A1c 8.4% 1 week ago -Continue Novolog sliding scale. may need basal lantus as well. DM diet. 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 May need bone scan (17) Mediastinal lymphadenopathy: As above (18) Supraclavicular lymphadenopathy: As above (19) Stage III chronic kidney disease: baseline Cr about 1.8-2.0 now w/ superimposed JULISA as above -Avoid nephrotoxins -renally dose meds when appropriate -follow BMP (20) Diarrhea: With 3-5 episodes of loose stools for the last week since being on antibiotics for acute prostatitis Checked C. difficile gene-was negative -Likely antibiotic associated diarrhea -Start probiotics, Imodium (21) DVT prophylaxis: heparin 5000 BID Disposition-continued stay overnight for further evaluation and to ensure renal failure improves, awaiting urology consultation Admission and Anticipated Discharge Date Admission Date: May 20, 2020 Subjective I spent approximately 45 minutes in discussion with patient and his today at the bedside regarding his numerous medical issues. He reports he is feeling pretty well today. Asencio catheter remains in place and is draining quite a bit of urine. He denies any chest pain. He does have chronic dyspnea on exertion. He denies any abdominal pain or nausea. Reports that his previous dysuria had resolved prior to coming in for this hospitalization since last week. He is continuing to have frequent loose stools for the last week since he was placed on antibiotics last admission. He is having at least 3 loose stools per day that are nonbloody. We reviewed all of his multiple abnormal findings on imaging and laboratory studies as well as his abnormal echocardiogram and EKG. The patient states that he really does not want to have any further work-up done for any of his issues at this time due to his concerns for alanna COVID-19 while in the hospital. He is interested in hearing what the slot tag inserter and urologist have to say, but he does not want to speak to a general surgeon about doing an excisional lymph node biopsy at this time. I discussed the case at length with the slot tag inserter and with hematology today. Review of Systems Review of Systems: All systems reviewed & are unremarkable except as noted in HPI & below Physical Exam Constitutional: WD/WN, vitals as above Eyes: + anicteric sclerae ENMT: external ear and nose normal, oropharynx normal Neck: trachea midline, no thyromegaly Respiratory: normal respiratory effort, lungs clear to auscultation Cardiovascular: RRR, no murmur, no edema Chest (Breasts): Chest: normal inspection of chest Gastrointestinal (Abdomen): normal bowel sounds, soft, nontender, no hepatosplenomegaly Musculoskeletal: Extremities: extremities normal to inspection; no cyanosis and no clubbing Skin: no rashes, warm and dry Neurologic: moves all extremities and awake; no focal motor deficits Psychiatric: A+Ox3, euthymic affect Genitourinary: Asencio catheter in place draining dark yellow clear urine Lymphatic: no lymphedema Results & Data Results & Data ([facility]) Vital Signs (Past 12 Hours) Vital Signs Temp Pulse Pulse Resp BP BP Pulse Ox 05/21/20 11:34 36.8 C 56 L 18 117/60 98 05/21/20 07:00 67 05/21/20 06:53 36.6 C 66 18 117/63 98 05/21/20 04:52 36.7 C 74 18 121/62 94 Laboratory Results 05/21/20 05/21/20 05/21/20 Range/Units 20:29 16:27 13:38 WBC (4.8-10.8) K/uL RBC (4.7-6.1) M/uL Hgb (14.0-18.0) g/dL Hct (42-52) % MCV (80-100) fL MCH (25-34) pg MCHC (32-36) g/dL RDW Std Deviation (36.4-46.3) fL RDW Coeff of Gerry (11.5-14.5) % Plt Count (130-400) K/uL MPV (7.4-10.4) fL Immature Gran % (Auto) % Neut % (Auto) % Lymph % (Auto) % [place] % (Auto) % Eos % (Auto) % Baso % (Auto) % Neut # (Auto) (1.4-6.5) K/uL Lymph # (Auto) (1.2-3.4) K/uL [place] # (Auto) (0.11-0.59) K/uL Eos # (Auto) (0-0.5) K/uL Baso # (Auto) (0-0.2) K/uL Immature Gran # (Auto) (0.00-0.02) K/uL Sodium (136-145) mmol/L Potassium (3.5-5.1) mmol/L Chloride (98-107) mmol/L Carbon Dioxide (21-32) mmol/L Anion Gap (3-11) BUN (7-18) mg/dl Creatinine (0.6-1.4) mg/dl Est Cr Clr Drug Dosing ml/min Est GFR ( Amer) Est GFR (Non-Af Amer) BUN/Creatinine Ratio (10-20) Glucose (70-99) mg/dl POC Glucose 116 H 177 H (70-99) mg/dl Calcium (8.5-10.1) mg/dl Lactate Dehydrogenase (87-241) U/L Troponin I (0-0.045) ng/ml Prostate Specific Ag (0-4) ng/ml Stl C. diff Tox B Gene Negative Cdiff Gene (Neg) 05/21/20 05/21/20 05/21/20 Range/Units 11:30 09:56 09:56 WBC 7.99 (4.8-10.8) K/uL RBC 3.02 L (4.7-6.1) M/uL Hgb 10.0 L (14.0-18.0) g/dL Hct 29.0 L (42-52) % MCV 96.0 (80-100) fL MCH 33.1 (25-34) pg MCHC 34.5 (32-36) g/dL RDW Std Deviation 46.7 H (36.4-46.3) fL RDW Coeff of Gerry 13.4 (11.5-14.5) % Plt Count 143 (130-400) K/uL MPV 10.4 (7.4-10.4) fL Immature Gran % (Auto) 4.3 % Neut % (Auto) 71.2 % Lymph % (Auto) 12.9 % [place] % (Auto) 11.0 % Eos % (Auto) 0.5 % Baso % (Auto) 0.1 % Neut # (Auto) 5.69 (1.4-6.5) K/uL Lymph # (Auto) 1.03 L (1.2-3.4) K/uL [place] # (Auto) 0.88 H (0.11-0.59) K/uL Eos # (Auto) 0.04 (0-0.5) K/uL Baso # (Auto) 0.01 (0-0.2) K/uL Immature Gran # (Auto) 0.34 H (0.00-0.02) K/uL Sodium 139 (136-145) mmol/L Potassium 3.6 (3.5-5.1) mmol/L Chloride 112 H (98-107) mmol/L Carbon Dioxide 20 L (21-32) mmol/L Anion Gap 7.0 (3-11) BUN 28 H (7-18) mg/dl Creatinine 2.07 H D (0.6-1.4) mg/dl Est Cr Clr Drug Dosing 27.5 ml/min Est GFR ( Amer) 34.5 Est GFR (Non-Af Amer) 29.8 BUN/Creatinine Ratio 13.6 (10-20) Glucose 185 H (70-99) mg/dl POC Glucose 161 H (70-99) mg/dl Calcium 7.9 L D (8.5-10.1) mg/dl Lactate Dehydrogenase (87-241) U/L Troponin I 0.068 H* (0-0.045) ng/ml Prostate Specific Ag 19.200 H (0-4) ng/ml Stl C. diff Tox B Gene (Neg) 05/21/20 05/21/20 Range/Units 09:56 07:28 WBC (4.8-10.8) K/uL RBC (4.7-6.1) M/uL Hgb (14.0-18.0) g/dL Hct (42-52) % MCV (80-100) fL MCH (25-34) pg MCHC (32-36) g/dL RDW Std Deviation (36.4-46.3) fL RDW Coeff of Gerry (11.5-14.5) % Plt Count (130-400) K/uL MPV (7.4-10.4) fL Immature Gran % (Auto) % Neut % (Auto) % Lymph % (Auto) % [place] % (Auto) % Eos % (Auto) % Baso % (Auto) % Neut # (Auto) (1.4-6.5) K/uL Lymph # (Auto) (1.2-3.4) K/uL [place] # (Auto) (0.11-0.59) K/uL Eos # (Auto) (0-0.5) K/uL Baso # (Auto) (0-0.2) K/uL Immature Gran # (Auto) (0.00-0.02) K/uL Sodium (136-145) mmol/L Potassium (3.5-5.1) mmol/L Chloride (98-107) mmol/L Carbon Dioxide (21-32) mmol/L Anion Gap (3-11) BUN (7-18) mg/dl Creatinine (0.6-1.4) mg/dl Est Cr Clr Drug Dosing ml/min Est GFR ( Amer) Est GFR (Non-Af Amer) BUN/Creatinine Ratio (10-20) Glucose (70-99) mg/dl POC Glucose 102 H (70-99) mg/dl Calcium (8.5-10.1) mg/dl Lactate Dehydrogenase 907 H (87-241) U/L Troponin I (0-0.045) ng/ml Prostate Specific Ag (0-4) ng/ml Stl C. diff Tox B Gene (Neg) PG Care Time/CCT Total # of Minutes Spent Total Time Spent with Patient: Total time spent is greater than 50% in coordination of care (as documented) at patient's floor/unit and/or counseling patient: Coding Level of Care Code 30640 Subseq Hosp Care Lvl 3 Diagnoses Acute kidney injury N17.9 Acute urinary retention R33.8 Obstructed, uropathy N13.9 Prostate nodule N40.2 UTI (urinary tract infection) N30.01 Hematuria presence: with hematuria Urinary tract infection type: acute cystitis Retroperitoneal lymphadenopathy R59.0 Abnormal ECG R94.31 Elevated troponin I level R79.89 Elevated LFTs R79.89 Generalized weakness R53.1 CAD (coronary artery disease) I25.10 Diabetes mellitus with renal complications E11.29 Dyslipidemia E78.5 Hypertension I10 Leg length discrepancy M21.70 Thoracic compression fracture S22.000A Mediastinal lymphadenopathy R59.0 Supraclavicular lymphadenopathy R59.0 Stage III chronic kidney disease N18.3 Diarrhea R19.7 DVT prophylaxis Z29.9 (1) UTI (urinary tract infection) Hematuria presence: with hematuria Urinary tract infection type: acute cystitis Qualified Code(s): N30.01 - Acute cystitis with hematuria
[2020-05-21] MEDS: cefTRIAXone SODIUM 2,000 MG in DEXTROSE 5% 50 ML IV SCH (15:51)
--- NOTE | 2020-05-21 21:50 | Cardiology Consultation ---
Date of Consultation May 21, 2020 Assessment & Plan (1) CAD (coronary artery disease): (2) Elevated troponin I level: (3) Hypertension: (4) Dyspnea on exertion: (5) Dyslipidemia: ASSESSMENT/PLAN: 1. CAD: Diagnosed with mild nonobstructive CAD in 1996. With wall motion abnormalities on echo, this would suggest prior infarction and more significant CAD. His chest discomfort yesterday was atypical and not likely ischemic in origin given his very low level troponin elevation peaking at 0.077 but otherwise small during without consistent decline. Recommend aspirin 81 mg daily. We discussed importance of high-intensity statin therapy. Recommend beta-kadie, however he declines at this time I would like to do more research. Rationale for beta-kadie discussed. There is no indication for urgent cardiac catheterization. Would recommend medical therapy unless he has more definitive ischemic symptoms, given underlying renal insufficiency and suspicion for malignancy. 2. Elevated troponin: He did not rule in for myocardial infarction. Discussion as above. No definite ischemic symptoms from a cardiac perspective. 3. Hypertension: Blood pressure reasonably controlled today. On lisinopril at home. 4. Dyslipidemia: Rationale for high-intensity statin therapy discussed. He did not tolerate Lipitor or Zocor and prefers to remain on low-dose pravastatin. 5. Dyspnea with exertion: He appears euvolemic. Dyspnea, which has been chronic, could be due to deconditioning given his limited exercise. Cannot exclude ischemic heart disease as the cause of his dyspnea. We discussed beta- kadie as above but he would like to think about it. 6. Disposition: Please call with any other questions or concerns. Plan of care discussed with Dr. Zavala of the primary hospitalist service. If he would like to follow-up in the cardiology office, we would be happy to see him. He inquired about this but wants to give it more thought. Thank you for allowing me to participate in the care of your patient. Please call for any other questions or concerns. Sincerely, Sravan Montgomery M.D. History of Present Illness Reason for Consultation: Chest pain, abnormal echo, elevated troponin Requesting Physician: Dr. Zavala Attending Physician: Jane Zavala MD History of Present Illness Mr. Patino is a pleasant 79-year-old gentleman with a history significant for CAD, CKD, retroperitoneal lymphadenopathy concerning for lymphoma, prostate nodule, diabetes, dyslipidemia, and hypertension. He has had the following studies /procedures: 1. Cardiac catheterization 1996 [facility] [place]: He reports 3 coronary vessels with 30% stenotic lesions. He was admitted on 05/20/2020 with acute kidney injury in the setting of urinary retention, which improved with Smith catheter placement. He was recently treated for suspected prostatitis and current issues are thought to be secondary to BPH. On presentation, he had been experiencing severe right upper quadrant abdominal pain that radiated to his umbilicus. He felt as though his abdomen was disten ded. Once a Smith catheter was placed, his pain was relieved. Now he states that he feels quite well. While being treated for prostatitis, he was taking Bactrim and Cipro and has had diarrhea since, with his last episode of diarrhea being last night. While here, he had 1 episode of left upper chest pain in a very focal area that lasted for approximately 1 hour. It occurred at rest and is described as "semi sharp. " There was no radiation of the pain and there was no associated shortness of breath or diaphoresis. The pain spontaneously resolved. He has had 10-20 year history of intermittent chest discomfort at rest at various places in his chest. He also states that he has had chronic dyspnea with exertion over the past 3 years. He admits that he no longer exercises and uses a walker for ambulation due to hip dysplasia. He denies melena, hematochezia, hematuria, or other bleeding. He denies syncope, near-syncope, palpitations, or edema. He has been seen by Hematology/Oncology and there is a concern for malignancy in regarding his lymphadenopathy. Biopsy has been recommended. He states that he did not tolerate Lipitor or Zocor in the past. He had been on pravastatin 40 mg in the past but requested that it be reduced as he believes that as people age, they become more sensitive to medications. He reports being told in the 1970s that he had a myocardial infarction based on an ECG with his PCP. He was asymptomatic. He underwent a cardiac catheterization in 1996 [facility] [place] which demonstrated mild nonobstructive CAD. He reports having 3 vessels with 30% stenotic lesions. Review of systems: As above. Review of systems otherwise negative/unremarkable. Family history: No known premature CAD. Father with CHF at 72. Social history: He smoked from . no alcohol or drugs. Lives at home with his , Shila. They have 2 children, 1 grandchild and 1 great grandch ild. 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 His , Shila, presented to the bedside. Allergies Allergy/AdvReac Type Severity Reaction Status Date / Time oxycodone [From Percodan] AdvReac Severe GI UPSET Verified 05/20/20 14:22 atorvastatin [From Lipitor] AdvReac Mild MUSCLE Verified 05/20/20 14:22 ACHES simvastatin [From Zocor] AdvReac Mild MUSCLE Verified 05/20/20 14:22 ACHES Home Medications Home Medications Medication Instructions Recorded Confirmed Type glucosamine-chondroitin 250 mg-200 1 tab PO DAILY tab 06/14/19 05/20/20 History mg tablet aspirin [Aspir-81] 81 mg PO QAM 05/12/20 05/20/20 History glimepiride 1 mg PO QDD 05/12/20 05/20/20 History lisinopril 2.5 mg PO QAM 05/12/20 05/20/20 History pravastatin 10 mg PO HS 05/12/20 05/20/20 History ciprofloxacin HCl 250 mg tablet 250 mg PO BID #20 tab 05/16/20 05/20/20 Rx Patient History Medical History (Updated 05/21/20 @ 21:54 by Cali Montgomery MD) Anemia Aortic atherosclerosis Arteriosclerotic coronary artery disease CAD (coronary artery disease) 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 Has declined repeat Colonoscopy per records History of strabismus surgery Family History (Updated 05/20/20 @ 13:09 by Nilson Benoit) Father Heart disease from CHF Mother Rheumatoid arthritis History of aortic valve replacement Grandmother (Paternal) Diabetes Aunt Diabetes Social History (Updated 05/20/20 @ 13:08 by Nilson Benoit) Smoking Status: Former smoker packs per day: 0.5; Smoking End Date: 1969; Number of Years Since Quit: 50; Second Hand Exposure: No; Hx Alcohol Use: No Hx Substance Use: No Preferred Language: [place] Communication Ability: Effective Visual Impairment: No Limitations Hearing Ability: Normal Location Manager Required: No Beliefs That Will Affect Care: None marital status: Current Living Situation: Spouse current occupational status: retired 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 Alert and oriented. HEENT: Anicteric sclera. Neck: No JVD. No bruits. Normal carotid upstrokes bilaterally. Cardiac: PMI was nondisplaced. No ventricular heave. Regular rate and rhythm. Normal S1-S2. No murmurs, rubs, or gallops. Pulmonary: Clear to auscultation bilaterally without wheezes, rales, or rhonchi. Abdomen: Soft, nontender, nondistended, with normoactive bowel sounds. No bruits noted. Extremities: 2+ radial pulses bilaterally. 2+ posterior tibialis pulses bilaterally. No edema or cyanosis. Psychiatric: Affect appears appropriate. Results & Data ([facility]) Vital Signs (Past 12 Hours) Vital Signs Temp Pulse Pulse Resp BP Pulse Ox 05/21/20 19:37 36.7 C 56 L 18 110/64 99 05/21/20 17:41 63 05/21/20 15:25 36.8 C 58 L 18 102/48 L 100 05/21/20 11:34 36.8 C 56 L 18 117/60 98 Laboratory Results Laboratory Results - last 24 hr 05/21/20 05/21/20 05/21/20 07:28 09:56 09:56 WBC RBC Hgb Hct MCV MCH MCHC RDW Std Deviation RDW Coeff of Gerry Plt Count MPV Immature Gran % (Auto) Neut % (Auto) Lymph % (Auto) [place] % (Auto) Eos % (Auto) Baso % (Auto) Neut # (Auto) Lymph # (Auto) [place] # (Auto) Eos # (Auto) Baso # (Auto) Immature Gran # (Auto) Sodium 139 Potassium 3.6 Chloride 112 H Carbon Dioxide 20 L Anion Gap 7.0 BUN 28 H Creatinine 2.07 H D Est Cr Clr Drug Dosing 27.5 Est GFR ( Amer) 34.5 Est GFR (Non-Af Amer) 29.8 BUN/Creatinine Ratio 13.6 Glucose 185 H POC Glucose 102 H Calcium 7.9 L D Lactate Dehydrogenase 907 H Troponin I 0.068 H* Prostate Specific Ag 19.200 H Stl C. diff Tox B Gene 05/21/20 05/21/20 05/21/20 09:56 11:30 13:38 WBC 7.99 RBC 3.02 L Hgb 10.0 L Hct 29.0 L MCV 96.0 MCH 33.1 MCHC 34.5 RDW Std Deviation 46.7 H RDW Coeff of Gerry 13.4 Plt Count 143 MPV 10.4 Immature Gran % (Auto) 4.3 Neut % (Auto) 71.2 Lymph % (Auto) 12.9 [place] % (Auto) 11.0 Eos % (Auto) 0.5 Baso % (Auto) 0.1 Neut # (Auto) 5.69 Lymph # (Auto) 1.03 L [place] # (Auto) 0.88 H Eos # (Auto) 0.04 Baso # (Auto) 0.01 Immature Gran # (Auto) 0.34 H Sodium Potassium Chloride Carbon Dioxide Anion Gap BUN Creatinine Est Cr Clr Drug Dosing Est GFR ( Amer) Est GFR (Non-Af Amer) BUN/Creatinine Ratio Glucose POC Glucose 161 H Calcium Lactate Dehydrogenase Troponin I Prostate Specific Ag Stl C. diff Tox B Gene Negative Cdiff Gene 05/21/20 05/21/20 16:27 20:29 WBC RBC Hgb Hct MCV MCH MCHC RDW Std Deviation RDW Coeff of Gerry Plt Count MPV Immature Gran % (Auto) Neut % (Auto) Lymph % (Auto) [place] % (Auto) Eos % (Auto) Baso % (Auto) Neut # (Auto) Lymph # (Auto) [place] # (Auto) Eos # (Auto) Baso # (Auto) Immature Gran # (Auto) Sodium Potassium Chloride Carbon Dioxide Anion Gap BUN Creatinine Est Cr Clr Drug Dosing Est GFR ( Amer) Est GFR (Non-Af Amer) BUN/Creatinine Ratio Glucose POC Glucose 177 H 116 H Calcium Lactate Dehydrogenase Troponin I Prostate Specific Ag Stl C. diff Tox B Gene Diagnostic Findings On 05/21/2020, telemetry personally reviewed. Sinus rhythm. No arrhythmia. Echo 05/20/2020: Normal LV size with low-normal systolic function. EF 50-55%. Severe hypokinesis of the inferior and inferolateral wall. Mild to moderate MR. Normal RVSP. ECG personally reviewed 05/20/2020: Sinus rhythm with PACs. Right bundle- branch block. LAFB. Possible septal infarct. Inferolateral ST/T-wave abnormality. Chest CT 05/20/2020: Perirectal, iliac chain, and retroperitoneal lymphadenopathy. Enlarged lymph nodes superior mediastinum and mildly enlarged left supraclavicular lymph nodes. Medications Administered Current Inpatient Medications Acetaminophen (Tylenol) 650 mg PO Q4H PRN PRN Reason: Pain or Fever Stop: 06/19/20 16:18 Aspirin (Ecotrin Ectab) 81 mg PO QAM SAMMY Stop: 06/20/20 08:59 Last Admin: 05/21/20 08:19 Dose: 81 mg Documented by: Dextrose (Dextrose 50%) 25 - 50 ml IV UD PRN; Protocol PRN Reason: Hypoglycemia Protocol Stop: 06/19/20 16:29 Glucagon (Glucagen) 1 mg IM UD PRN; Protocol PRN Reason: Hypoglycemia Protocol Stop: 06/19/20 16:29 Glucose (Glucose 40%) 15 - 30 gm PO UD PRN; Protocol PRN Reason: Hypoglycemia Protocol Stop: 06/19/20 16:29 Glucose (Dex4 Glucose) 4 - 8 tabs PO UD PRN; Protocol PRN Reason: Hypoglycemia Protocol Stop: 06/19/20 16:29 Heparin Sodium (Porcine) (Heparin Sodium (Porcine)) 5,000 units SQ Q12 SAMMY Stop: 06/19/20 20:59 Last Admin: 05/21/20 20:58 Dose: Not Given Documented by: Ceftriaxone Sodium 2,000 mg/ (Dextrose) 70 mls @ 100 mls/hr IV DAILY SAMMY; Protocol Stop: 05/26/20 15:59 Last Infusion: 05/21/20 16:35 Dose: Infused Documented by: Insulin Aspart (Novolog Flexpen) 0 units SC ACHS SAMMY Stop: 06/19/20 16:29 Last Admin: 05/21/20 20:58 Dose: Not Given Documented by: Miscellaneous (Carbohydrates For Hypoglycemia) 15 - 30 gm PO UD PRN PRN Reason: Hypoglycemia Treatment Stop: 06/19/20 16:29 Morphine Sulfate (Morphine Sulfate) 2 mg IV Q3H PRN PRN Reason: Pain Stop: 06/03/20 16:18 Ondansetron HCl (Zofran) 4 mg IV Q6H PRN PRN Reason: Nausea Stop: 06/19/20 16:18 Pantoprazole Sodium (Protonix) 40 mg PO QAM [facility] Stop: 06/19/20 16:18 Last Admin: 05/21/20 08:20 Dose: 40 mg Documented by: Tamsulosin [facility] (Flomax) [facility] [place] [facility] Stop: 06/20/20 08:59 Last Admin: 05/21/20 08:19 Dose: 0.4 mg Documented by: PG Care Time/CCT Total # of Minutes Spent Total Time Spent with Patient: Total time spent is greater than 50% in coordination of care (as documented) at patient's floor/unit and/or counseling patient: Coding Level of Care Code 58291 Initial Inpt Care Lvl 2 Diagnoses CAD (coronary artery disease) I25.10 Elevated troponin I level R79.89 Hypertension I10 Dyspnea on exertion R06.00 Dyslipidemia E78.5
[2020-05-21] MEDS ORDERED: LOPERAMIDE HCL 2 MG CAP PO PRN (23:23)
--- NOTE | 2020-05-21 23:26 | Consultation Report ---
DATE OF CONSULTATION: 05/21/2020 REASON FOR THE CONSULT: Urinary retention, prostate nodule and elevated PSA. HISTORY OF PRESENTATION: The patient is a 79-year-old male who was recently seen in the hospital for what was felt to be acute prostatitis, urinary tract infection, was given ceftriaxone. He initially felt this was done on May 12, initially felt better, although urine culture at that admission grew out 3 different organisms and nothing definite. The patient was discharged to home and then returned with increasing abdominal pain. His creatinine which had a relatively high baseline in the 2 range had gone up slightly on his admission to the high 2s. Smith catheter was placed and he had 800 mL in the Emergency Room. He felt significantly better and continues to feel improved. A PSA was obtained and his PSA is 19.2. He was seen he says several years ago by Dr. Shepherd and he thought his PSA was in a normal range previously. Currently, the patient is lying in bed, relatively comfortable with minimal abdominal discomfort at this time. Smith catheter is in place draining clear urine. The patient has significant medical problems with leg discrepancy, which causes him to need a walker. He has had a history of BPH, it should be noted that prior to 3-4 months ago, the patient was able to void and voided frequently at night with urgency and then he became increasingly difficult voiding and his stream changed. He has a history of an abnormal LFT, history of retroperitoneal lymphadenopathy on CT scan recently on this admission, history of diverticulitis in the past, history of diabetes mellitus with renal complications, stage III chronic renal disease, hypertension and dyslipidemia. MEDICATIONS: Include pravastatin, lisinopril, glucosamine, glimepiride, ciprofloxacin from the previous admission and aspirin. REVIEW OF SYSTEMS: Please refer to the review of systems from the recent history and physical in the Emergency Room from yesterday. PHYSICAL EXAMINATION: GENERAL: The patient is a well-developed male in no obvious distress. HEENT: Unremarkable. LUNGS: He has no respiratory distress. ABDOMEN: Benign. GENITOURINARY: He has got a Smith catheter in place. Normal male phallus. Prostate exam does show a large prostate 60-80 grams with the left upper part of the prostate being hard suspicious for cancer. EXTREMITIES: Marked by the need for a walker with 1 leg being shorter than the other. No obvious pedal edema. NEUROLOGIC: He is alert and oriented without any focal sensory deficits. ASSESSMENT: Urinary retention, suspicious for possible prostate cancer. PLAN: The patient will need to have Smith catheter in place for the time being, need to be scheduled for a transrectal ultrasound and biopsy of his prostate. This should be arranged by calling the office and we will see if it can be arranged during this admission to have a voiding trial and go over the biopsy, or perhaps just go straight to the biopsy at the time of the voiding trial. Discussed with the patient the possibility of prostate cancer and discussed prostate biopsies and discussed radiation therapy as a possible treatment for prostate cancer given the elevated PSA and the lymph nodes. Oncology has been consulted and there was concern for lymphadenopathy with lymphoproliferative disorder or neoplastic process. Given the elevated PSA and prostate exam, we think that a prostate biopsy should be accelerated, but would stop the patient's aspirin at this time if possible. We will continue to follow the patient. BECKY
--- NOTE | 2020-05-22 05:56 | Electrocardiogram Report ---
Test Reason : Blood Pressure : / mmHG Vent. Rate : 070 BPM Atrial Rate : 070 BPM P-R Int : 208 ms QRS Dur : 126 ms QT Int : 432 ms P-R-T Axes : 030 -48 239 degrees QTc Int : 466 ms Sinus rhythm with marked sinus arrhythmia Right bundle branch block Left anterior fascicular block Bifascicular block Minimal voltage criteria for LVH, may be normal variant Possible Septal infarct (cited on or before 20-MAY-2020) Abnormal ECG When compared with ECG of 12-MAY-2020 13:45, T wave inversion no longer evident in Inferolateral leads Confirmed by Cali Montgomery ([id number]) on 05/22/2020 5:56:25 AM Referred By: REFERRED SELF Confirmed By:Cali Montgomery
[2020-05-22] MEDS: ASPIRIN 81 MG ECTAB PO SCH (07:12)
[2020-05-22 07:47] LABS: Hematocrit (blood only) 30.5 % (42-52); Hemoglobin 10.3 g/dL (14.0-18.0); Mean Corpuscular Hemoglobin 33.1 pg (25-34); Mean Corpuscular Hgb Conc 33.8 g/dL (32-36); Mean Corpuscular Volume 98.1 fL (80-100); Mean Platelet Volume 10.2 fL (7.4-10.4); Platelet Count 152 K/uL (130-400); RDW Coefficient of Variation 13.5 % (11.5-14.5); RDW Standard Deviation 48.1 fL (36.4-46.3); Red Blood Count 3.11 M/uL (4.7-6.1); White Blood Count 7.34 K/uL (4.8-10.8)
[2020-05-22] MEDS: cefTRIAXone SODIUM 2,000 MG in DEXTROSE 5% 50 ML IV SCH (08:03)
[2020-05-22] MEDS: TAMSULOSIN HCL 0.4 MG CAP PO SCH (08:06)
[2020-05-22] MEDS: SACCHAROMYCES BOULARDII 250 MG CAP PO SCH (08:06)
[2020-05-22] MEDS: PANTOprazole 40 MG TAB PO SCH (08:06)
[2020-05-22] MEDS: INSULIN ASPART 100 UNITS/ML 3 ML PEN SC SCH ×4 (08:06→21:58)
[2020-05-22] MEDS: HEPARIN SOD 5,000 UNIT/0.5 ML VIAL SQ SCH (08:08)
[2020-05-22 08:10] LABS: Albumin Level 2.4 gm/dl (3.4-5.0); Bilirubin Direct 0.1 mg/dl (0-0.2); Calcium 8.5 mg/dl (8.5-10.1); Creatinine Clr Calc Pharmacy 25.8 ml/min; Est GFR (African American) 31.9; Est GFR (Non-African American) 27.5; Magnesium 1.8 mg/dl (1.8-2.4); Potassium 3.6 mmol/L (3.5-5.1)
[2020-05-22 08:13] LABS: Basophils # (auto) 0.03 K/uL (0-0.2); Basophils % (auto) 0.4 %; Eosinophils # (auto) 0.12 K/uL (0-0.5); Eosinophils % (auto) 1.6 %; Immature Granulocytes # (auto) 0.56 K/uL (0.00-0.02); Immature Granulocytes % (auto) 7.6 %; Lymphocytes # (auto) 1.17 K/uL (1.2-3.4); Lymphocytes % (auto) 15.9 %; Monocytes # (auto) 0.76 K/uL (0.11-0.59); Monocytes % (auto) 10.4 %; Neutrophils % (auto) 64.1 %
[2020-05-22 08:14] LABS: Folate (Folic Acid) 8.76 ng/ml (>5.38)
[2020-05-22 08:23] LABS: Bilirubin,Total 0.4 mg/dl (0.2-1); Ferritin 799.9 ng/ml (8-388); Thyroid Stimulating Hormone 1.24 uIu/ml (0.300-4.500); Total Protein 6.5 gm/dl (6.4-8.2)
--- NOTE | 2020-05-22 14:16 | Hospitalist Progress Note ---
Date of Service May 22, 2020 Assessment & Plan (1) Acute kidney injury: Likely obstructive in nature given the urinary retention and need for asencio in the ER. U/a without casts. no recent hypotension to suggest pre-renal causes. Creatinine is improved and around baseline today at 2.2 after placement of Asencio catheter which relieved his obstruction as well as hydration with normal saline Mild non-anion gap metabolic acidosis is improved today to 21-he has had diarrhea which could cause this Cont asencio. -continue flomax for enlarged prostate Follows with nephrology as an outpatient Pt requests no further lab draws if possible (2) Acute urinary retention: With nocturia and urinary frequency ongoing for the last month, much worse in the last week. Admitted with presumed prostatitis 1 week ago and treated with antibiotics. Presented with significant abdominal pain and was found to be retaining 800 mL's of urine on admission this time Admitting physician's SURENDRA was not c/w prostatitis, but there was a nodule palpated. Urology also palpated a firm nodule on the left and suspects prostate CA Now s/p asencio placement. Maintain Asencio catheter for now CT of the abdomen/pelvis shows enlarged heterogenous prostate gland, diffuse lymphadenopathy Urology recommends transrectal US-guided prostate bx and pt is agreeable but would like to do it while he is in ehospital which is reasonable given his CKD and cardiac issues -hold ASA and heparin in preparation for biopsy UA this time not consistent with infection, however he has been on both Bactrim and then Cipro as an outpatient -Continue IV Rocephin for now (3) Obstructed, uropathy: As above -Continue Flomax (4) Prostate nodule: left-side of prostate, likely CA, PSA 19 urology consultation as noted above Also with elevated alkaline phosphatase which is concerning for bony metastases although none noted on imaging (5) UTI (urinary tract infection): 05/12/20 culture was negative. Given ongoing urinary symptoms despite recent bactrim then cipro, obtained repeat urine culture. Continue IV rocephin in meantime. Due to chills in the ER, 2 sets of blood cultures were obtained-no growth to date. (6) Retroperitoneal lymphadenopathy: Retroperitoneal lymphadenopathy plus iliac chain plus left supraclavicular lymphadenopathy and superior mediastinal lymphadenopathy highly concerning for lymphoma process versus metastatic disease from the prostate. LDH significantly elevated at 900 and alkaline phosphatase also elevated in the 200s Appreciate hematology/oncology consultation-recommends excisional lymph node biopsy for definitive diagnosis Patient continues to decline lymph node biopsy at this time, but will consider for in the future. Wants to check out the prostate issue first which is reasonable (7) Abnormal ECG: ischemic changes in inferior leads and anterolateral leads. 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 Troponins are mildly elevated but stable at 0.063 Echo here with severe inferior inferolateral hypokinesis and abnormal septal motion consistent with conduction abnormality, mild-moderate MR Patient denies any exertional chest pain He had a cardiac catheterization in 1996 that apparently showed 3 arteries with 30% stenoses, but no intervention performed at that time He thinks he had a nuclear stress test over 10 years ago that was also normal Appreciate cardiology consultation-recommends cont aspirin and starting a beta- kadie, however patient declines to do this at this time. -Statin held due to abnormal LFTs and patient declines to increase to high intensity dosage. He has had issues with other statins in the past. -Would not perform cardiac catheterization at this time due to chronic kidney disease, but would consider doing nuclear perfusion scan as an outpatient, however patient also wants to think about this before deciding to do it -Continue to monitor on telemetry (8) Elevated troponin I level: likely myocardial demand ischemia in setting of JULISA, UTI, etc. As above (9) Elevated LFTs: With elevated AST and alkaline phosphatase on admission which are improved from 1 week ago As noted above, could be secondary to possible metastases No abnormalities noted on the liver on imaging -Continue to hold statin pt requests no routine lab draws (10) Generalized weakness: likely multifactorial including suspected UTI, acute kidney injury, mild dehydration, poor oral intake, and concern for lymphoma versus other malignant process. PT, OT. (11) CAD (coronary artery disease): "silent" RI early . 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 With some occasional hyperglycemia here Hemoglobin A1c 8.4% 1 week ago -Continue Novolog sliding scale. may need basal lantus as well. DM diet. 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 May need bone scan (17) Mediastinal lymphadenopathy: As above (18) Supraclavicular lymphadenopathy: As above (19) Stage III chronic kidney disease: baseline Cr about 1.8-2.0 here w/ superimposed JULISA as above -Avoid nephrotoxins -renally dose meds when appropriate (20) Diarrhea: With 3-5 episodes of loose stools for the last week since being on antibiotics for acute prostatitis Checked C. difficile gene-was negative -Likely antibiotic associated diarrhea -Start probiotics, Imodium-encouraged Imodium use -continues (21) DVT prophylaxis: heparin SQ refused by pt and he would like it discontinued -add SCDs Disposition-continued stay overnight for further evaluation of urinary retention and for prostate bx Admission and Anticipated Discharge Date Admission Date: May 20, 2020 Subjective Pt reports feeling very poorly today after his SURENDRA with Urology last evening. He has pain in his bottom. He is still having diarrhea and has not tried Imodium although RN reports it was offered and he declined. He is agreeable to doing a prostate bx but wants it to be done while he is in house and wants to make sure he gets sedation with it as he fears pain. Also requesting his previous Urologist Dr. Shepherd to do the procedure. Denies CP or SOB. Is joey po , no N/V Tele with sinus arrhythmia, 1st deg AVB, PACs, rates 60-70s he also requests no further lab draws as it woke him from sleep a Review of Systems Review of Systems: All systems reviewed & are unremarkable except as noted in HPI & below Physical Exam Constitutional: WD/WN, vitals as above Eyes: + anicteric sclerae Neck: trachea midline, no thyromegaly Respiratory: normal respiratory effort, lungs clear to auscultation Cardiovascular: RRR, no murmur, no edema Chest (Breasts): Chest: normal inspection of chest Gastrointestinal (Abdomen): normal bowel sounds, soft, nontender, no hepatosplenomegaly Musculoskeletal: Extremities: extremities normal to inspection; no cyanosis and no clubbing Skin: no rashes, warm and dry Neurologic: moves all extremities and awake; no focal motor deficits Psychiatric: Orientation: alert and oriented x 3 Affect: + anxious affect Mood: + anxious mood Genitourinary: Asencio in place with clear yellow urine Lymphatic: no lymphedema Results & Data Results & Data ([facility]) Vital Signs (Past 12 Hours) Vital Signs Temp Pulse Pulse Resp BP Pulse Ox 05/22/20 07:46 36.7 C 53 L 19 128/74 98 05/22/20 07:30 55 L 05/22/20 02:53 36.7 C 78 18 123/71 94 Laboratory Results 05/22/20 05/22/20 05/22/20 Range/Units 11:47 07:39 07:35 WBC (4.8-10.8) K/uL RBC (4.7-6.1) M/uL Hgb (14.0-18.0) g/dL Hct (42-52) % MCV (80-100) fL MCH (25-34) pg MCHC (32-36) g/dL RDW Std Deviation (36.4-46.3) fL RDW Coeff of Gerry (11.5-14.5) % Plt Count (130-400) K/uL MPV (7.4-10.4) fL Immature Gran % (Auto) % Neut % (Auto) % Lymph % (Auto) % Desha % (Auto) % Eos % (Auto) % Baso % (Auto) % Neut # (Auto) (1.4-6.5) K/uL Lymph # (Auto) (1.2-3.4) K/uL Desha # (Auto) (0.11-0.59) K/uL Eos # (Auto) (0-0.5) K/uL Baso # (Auto) (0-0.2) K/uL Immature Gran # (Auto) (0.00-0.02) K/uL Sodium (136-145) mmol/L Potassium (3.5-5.1) mmol/L Chloride (98-107) mmol/L Carbon Dioxide (21-32) mmol/L Anion Gap (3-11) BUN (7-18) mg/dl Creatinine (0.6-1.4) mg/dl Est Cr Clr Drug Dosing ml/min Est GFR ( Amer) Est GFR (Non-Af Amer) BUN/Creatinine Ratio (10-20) Glucose (70-99) mg/dl POC Glucose 146 H 229 H (70-99) mg/dl Calcium (8.5-10.1) mg/dl Magnesium (1.8-2.4) mg/dl Iron (35-175) mcg/dl Transferrin (200-360) mg/dl Transferrin % Sat (20-50) % Ferritin (8-388) ng/ml Total Bilirubin (0.2-1) mg/dl Direct Bilirubin (0-0.2) mg/dl AST (15-37) U/L ALT (12-78) U/L Alkaline Phosphatase (45-117) U/L Total Protein (6.4-8.2) gm/dl Albumin (3.4-5.0) gm/dl Vitamin B12 636 (211-911) pg/ml Folate 8.76 (>5.38) ng/ml TSH (0.300-4.500) uIu/ml Stool Occult Bld Scrn (Negative) Stl C. diff Tox B Gene (Neg) 05/22/20 05/22/20 05/22/20 Range/Units 07:35 07:35 01:40 WBC 7.34 (4.8-10.8) K/uL RBC 3.11 L (4.7-6.1) M/uL Hgb 10.3 L (14.0-18.0) g/dL Hct 30.5 L (42-52) % MCV 98.1 (80-100) fL MCH 33.1 (25-34) pg MCHC 33.8 (32-36) g/dL RDW Std Deviation 48.1 H (36.4-46.3) fL RDW Coeff of Gerry 13.5 (11.5-14.5) % Plt Count 152 (130-400) K/uL MPV 10.2 (7.4-10.4) fL Immature Gran % (Auto) 7.6 % Neut % (Auto) 64.1 % Lymph % (Auto) 15.9 % Desha % (Auto) 10.4 % Eos % (Auto) 1.6 % Baso % (Auto) 0.4 % Neut # (Auto) 4.70 (1.4-6.5) K/uL Lymph # (Auto) 1.17 L (1.2-3.4) K/uL Desha # (Auto) 0.76 H (0.11-0.59) K/uL Eos # (Auto) 0.12 (0-0.5) K/uL Baso # (Auto) 0.03 (0-0.2) K/uL Immature Gran # (Auto) 0.56 H (0.00-0.02) K/uL Sodium 138 (136-145) mmol/L Potassium 3.6 (3.5-5.1) mmol/L Chloride 110 H (98-107) mmol/L Carbon Dioxide 21 (21-32) mmol/L Anion Gap 7.0 (3-11) BUN 29 H (7-18) mg/dl Creatinine 2.21 H (0.6-1.4) mg/dl Est Cr Clr Drug Dosing 25.8 ml/min Est GFR ( Amer) 31.9 Est GFR (Non-Af Amer) 27.5 BUN/Creatinine Ratio 13.0 (10-20) Glucose 197 H (70-99) mg/dl POC Glucose (70-99) mg/dl Calcium 8.5 (8.5-10.1) mg/dl Magnesium 1.8 (1.8-2.4) mg/dl Iron 54 (35-175) mcg/dl Transferrin 162 L (200-360) mg/dl Transferrin % Sat 24 (20-50) % Ferritin 799.9 H (8-388) ng/ml Total Bilirubin 0.4 D (0.2-1) mg/dl Direct Bilirubin 0.1 (0-0.2) mg/dl AST 84 H (15-37) U/L ALT 41 (12-78) U/L Alkaline Phosphatase 172 H (45-117) U/L Total Protein 6.5 (6.4-8.2) gm/dl Albumin 2.4 L (3.4-5.0) gm/dl Vitamin B12 (211-911) pg/ml Folate (>5.38) ng/ml TSH 1.240 (0.300-4.500) uIu/ml Stool Occult Bld Scrn Negative (Negative) Stl C. diff Tox B Gene (Neg) 05/21/20 05/21/20 05/21/20 Range/Units 20:29 16:27 13:38 WBC (4.8-10.8) K/uL RBC (4.7-6.1) M/uL Hgb (14.0-18.0) g/dL Hct (42-52) % MCV (80-100) fL MCH (25-34) pg MCHC (32-36) g/dL RDW Std Deviation (36.4-46.3) fL RDW Coeff of Gerry (11.5-14.5) % Plt Count (130-400) K/uL MPV (7.4-10.4) fL Immature Gran % (Auto) % Neut % (Auto) % Lymph % (Auto) % Desha % (Auto) % Eos % (Auto) % Baso % (Auto) % Neut # (Auto) (1.4-6.5) K/uL Lymph # (Auto) (1.2-3.4) K/uL Desha # (Auto) (0.11-0.59) K/uL Eos # (Auto) (0-0.5) K/uL Baso # (Auto) (0-0.2) K/uL Immature Gran # (Auto) (0.00-0.02) K/uL Sodium (136-145) mmol/L Potassium (3.5-5.1) mmol/L Chloride (98-107) mmol/L Carbon Dioxide (21-32) mmol/L Anion Gap (3-11) BUN (7-18) mg/dl Creatinine (0.6-1.4) mg/dl Est Cr Clr Drug Dosing ml/min Est GFR ( Amer) Est GFR (Non-Af Amer) BUN/Creatinine Ratio (10-20) Glucose (70-99) mg/dl POC Glucose 116 H 177 H (70-99) mg/dl Calcium (8.5-10.1) mg/dl Magnesium (1.8-2.4) mg/dl Iron (35-175) mcg/dl Transferrin (200-360) mg/dl Transferrin % Sat (20-50) % Ferritin (8-388) ng/ml Total Bilirubin (0.2-1) mg/dl Direct Bilirubin (0-0.2) mg/dl AST (15-37) U/L ALT (12-78) U/L Alkaline Phosphatase (45-117) U/L Total Protein (6.4-8.2) gm/dl Albumin (3.4-5.0) gm/dl Vitamin B12 (211-911) pg/ml Folate (>5.38) ng/ml TSH (0.300-4.500) uIu/ml Stool Occult Bld Scrn (Negative) Stl C. diff Tox B Gene Negative Cdiff Gene (Neg) PG Care Time/CCT Total # of Minutes Spent Total Time Spent with Patient: Total time spent is greater than 50% in coordination of care (as documented) at patient's floor/unit and/or counseling patient: Coding Level of Care Code 94050 Subseq Hosp Care Lvl 3 Diagnoses Acute kidney injury N17.9 Acute urinary retention R33.8 Obstructed, uropathy N13.9 Prostate nodule N40.2 UTI (urinary tract infection) N30.01 Hematuria presence: with hematuria Urinary tract infection type: acute cystitis Retroperitoneal lymphadenopathy R59.0 Abnormal ECG R94.31 Elevated troponin I level R79.89 Elevated LFTs R79.89 Generalized weakness R53.1 CAD (coronary artery disease) I25.10 Diabetes mellitus with renal complications E11.29 Dyslipidemia E78.5 Hypertension I10 Leg length discrepancy M21.70 Thoracic compression fracture S22.000A Mediastinal lymphadenopathy R59.0 Supraclavicular lymphadenopathy R59.0 Stage III chronic kidney disease N18.3 Diarrhea R19.7 DVT prophylaxis Z29.9 (1) UTI (urinary tract infection) Hematuria presence: with hematuria Urinary tract infection type: acute cystitis Qualified Code(s): N30.01 - Acute cystitis with hematuria
[2020-05-23] MEDS: ACETAMINOPHEN 325 MG TAB PO PRN ×3 (02:43→15:19)
[2020-05-23] MEDS: PANTOprazole 40 MG TAB PO SCH (07:59)
[2020-05-23] MEDS: TAMSULOSIN HCL 0.4 MG CAP PO SCH (07:59)
[2020-05-23] MEDS: SACCHAROMYCES BOULARDII 250 MG CAP PO SCH (07:59)
[2020-05-23] MEDS: INSULIN ASPART 100 UNITS/ML 3 ML PEN SC SCH ×3 (08:03→17:30)
[2020-05-23] MEDS: cefTRIAXone SODIUM 2,000 MG in DEXTROSE 5% 50 ML IV SCH (08:06)
--- NOTE | 2020-05-23 13:53 | Urology Progress Note ---
Date of Service May 23, 2020 Assessment & Plan (1) Prostate nodule: - Very lengthy discussion today with patient and spouse regarding prostate biopsy. - He has many concerns regarding logistics at this time including pain, anesthesia, enema, COVID testing, mobility issues - We did discuss office prostate biopsy, but he is very concerned about experiencing pain if done in office. - He does not feel comfortable signing consent today. - Will tentatively leave him on the OR schedule for 05/28. Will plan to reassess with pt on Tuesday, 05/26. - I did advise that surgery may not be able to proceed on 05/28 as planned without performing pre-op COVID testing today. - Again reviewed concern for elevated PSA and palpable nodule. - He is aware of potential risks of delaying of prostate biopsy. - He verbalizes understanding. - All questions answered to the best of my ability within my scope of practice. - Recommend continue Smith catheter for now. May need to arrange outpatient TOV if surgery date delayed. Admission and Anticipated Discharge Date Admission Date: May 20, 2020 Subjective Pt seen at bedside today with his to discuss and sign paperwork for scheduled prostate biopsy in OR on 05/28/20. During discussion, he expresses multiple concerns regarding prostate biopsy including needing to complete an enema and COVID testing. Also concerned about risks of anesthesia for the procedure. We discussed alternative for office prostate biopsy, but he feels he is unable to tolerate that. Generally doing well. Reports an episode of right sided abdominal/groin pain last night that awakened him. Tylenol was administered. Reports this provided relief. Tolerating Smith catheter with minimal bother. No abdominal, flank or suprapubic pain at present. Denies dysuria or hematuria. No constipation. No f/c/n/v. Review of Systems Constitutional: as per Subjective / HPI Gastrointestinal: as per Subjective / HPI Genitourinary: + as per Subjective / HPI Physical Exam Constitutional: well developed and well nourished; no acute distress and not ill appearing Respiratory: normal respiratory effort and able to speak in complete sentences; no respiratory distress and no labored breathing Gastrointestinal (Abdomen): Inspection/Auscultation: abdomen normal to inspection; abdomen not distended Musculoskeletal: Head/Neck/Chest: normocephalic and head atraumatic Neurologic: moves all extremities and awake Psychiatric: Orientation: alert and oriented x 3 Genitourinary: Smith catheter intact, patent, draining clear yellow urine. Results & Data ([facility]) Vital Signs (Past 12 Hours) Vital Signs Temp Pulse Pulse Resp BP Pulse Ox 05/23/20 11:22 36.7 C 82 18 133/67 99 05/23/20 10:36 65 05/23/20 07:08 36.7 C 66 18 123/73 98 05/23/20 04:38 36.8 C 90 20 125/78 98 PG Care Time/CCT Total # of Minutes Spent Total Time Spent with Patient: Total time spent is greater than 50% in coordination of care (as documented) at patient's floor/unit and/or counseling patient: Coding Level of Care Code 45051 Subseq Hosp Care Lvl 3 Diagnoses Prostate nodule N40.2
--- NOTE | 2020-05-23 15:24 | Discharge Summary ---
Date of Service May 23, 2020 Admission HPI Per Admitting Provider 79yo male with recent hospitalization for suspected prostatitis presents today because of severe pressure of his lower abdomen along with pain. Over the last few days he has had urinary frequency and severe nocturia. With voiding he is only passing small amounts of urine. No fever. No chills. noted at home that his abdomen was distended. In the ER he was bladder scanned for 700cc. Asencio was placed; he had instant relief of lower abdominal pain and pressure (from 11/10 on pain scale to 3-4/10). For the last 2 months he has had severe early satiety. With just a few bites of food he is filled up. He has had 10-15 pounds of weight loss over the last few months. He has had nausea but no vomiting. Excessive burping/belching. After his hospital stay for prostatitis he was discharged home on bactrim. This was changed to cipro by family medicine during a follow-up appointment because of significant diarrhea from the bactrim. The diarrhea improved with the above changes. Principal Diagnosis Urinary retention, acute prostatitis, suspected prostate cancer Diffuse lymphadenopathy, acute kidney injury Discharge Exam Constitutional WD/WN, vitals as above Eyes + anicteric sclerae Neck trachea midline, no thyromegaly Respiratory normal respiratory effort, lungs clear to auscultation Cardiovascular RRR, no murmur, no edema Chest (Breasts) Chest: normal inspection of chest Gastrointestinal (Abdomen) normal bowel sounds, soft, nontender, no hepatosplenomegaly Musculoskeletal Extremities: extremities normal to inspection; no cyanosis and no clubbing Skin no rashes, warm and dry Neurologic moves all extremities and awake; no focal motor deficits Psychiatric Orientation: alert and oriented x 3 Affect: + anxious affect Mood: + anxious mood Genitourinary Asencio catheter in place with clear yellow urine Lymphatic no lymphedema Discharge Data Allergies Allergy/AdvReac Type Severity Reaction Status Date / Time oxycodone [From Percodan] AdvReac Severe GI UPSET Verified 05/20/20 14:22 atorvastatin [From Lipitor] AdvReac Mild MUSCLE Verified 05/20/20 14:22 ACHES simvastatin [From Zocor] AdvReac Mild MUSCLE Verified 05/20/20 14:22 ACHES Consultations 05/20/20 12:44 ED Decision to Admit Stat 05/20/20 16:19 Consult Hematology Routine 05/21/20 10:01 Consult Cardiology Routine Consult Urology Routine Ordered Studies 05/20/20 13:46 CT abd pelvis oral con only Routine CT chest wo con Routine Echocardiogram Chest x-ray Hospital Course (1) Acute kidney injury: Likely obstructive in nature given the urinary retention and need for asencio in the ER. U/a without casts. no recent hypotension to suggest pre-renal causes. Creatinine is improved and around baseline at 2.2 after placement of Asencio catheter which relieved his obstruction as well as hydration with normal saline Mild non-anion gap metabolic acidosis is improved to 21-he has had diarrhea which could cause this Cont asencio upon discharge and follow-up with urology for prostate biopsy and trial of void. -continue flomax for enlarged prostate Follows with nephrology as an outpatient (2) Acute urinary retention: With nocturia and urinary frequency ongoing for the last month, much worse in the last week. Admitted with presumed prostatitis 1 week ago and treated with antibiotics. Presented with significant abdominal pain and was found to be retaining 800 mL's of urine on admission this time Admitting physician's SURENDRA was not c/w prostatitis, but there was a nodule palpated. Urology also palpated a firm nodule on the left and suspects prostate CA Now s/p asencio placement. Maintain Asencio catheter for now upon discharge CT of the abdomen/pelvis shows enlarged heterogenous prostate gland, diffuse lymphadenopathy. PSA is elevated at 19 Urology recommends transrectal US-guided prostate bx and pt is agreeable to doing this as an outpatient-he will arrange with urology -hold ASA in preparation for biopsy next week UA this time not consistent with infection, however he has been on both Bactrim and then Cipro as an outpatient -Received IV Rocephin and will convert to cefdinir 300 mg p.o. twice daily for at least 2 more weeks (3) Obstructed, uropathy: As above -Continue Flomax, Asencio catheter (4) Prostate nodule: left-side of prostate, likely CA, PSA 19 urology consultation as noted above Also with elevated alkaline phosphatase which is concerning for bony metastases although none noted on imaging (5) UTI (urinary tract infection): 05/12/20 culture was negative. Given ongoing urinary symptoms despite recent bactrim then cipro, obtained repeat urine culture. Antibiotics as above Due to chills in the ER, 2 sets of blood cultures were obtained-no growth to date. (6) Retroperitoneal lymphadenopathy: Retroperitoneal lymphadenopathy plus iliac chain, left supraclavicular lymphadenopathy and superior mediastinal lymphadenopathy highly concerning for lymphoma process versus metastatic disease from the prostate. LDH significantly elevated at 900 and alkaline phosphatase also elevated in the 200s Appreciate hematology/oncology consultation-recommends excisional lymph node biopsy for definitive diagnosis Patient continues to decline lymph node biopsy at this time, but will consider for in the future. Wants to check out the prostate issue first which is reasonable (7) Abnormal ECG: ischemic changes in inferior leads and anterolateral leads. 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 Troponins are mildly elevated but stable at 0.063 Echo here with severe inferior inferolateral hypokinesis and abnormal septal motion consistent with conduction abnormality, mild-moderate MR Patient denies any exertional chest pain He had a cardiac catheterization in 1996 that apparently showed 3 arteries with 30% stenoses, but no intervention performed at that time He thinks he had a nuclear stress test over 10 years ago that was also normal Appreciate cardiology consultation-recommends cont aspirin and starting a beta- kadie, however patient declines to do this at this time. -Statin held due to abnormal LFTs and patient declines to increase to high inten sity dosage. He has had issues with other statins in the past. -Would not perform cardiac catheterization at this time due to chronic kidney disease, but would consider doing nuclear perfusion scan as an outpatient, however patient also wants to think about this before deciding to do it Follow-up with cardiology as an outpatient as desired for myocardial perfusion stress test (8) Elevated troponin I level: likely myocardial demand ischemia in setting of JULISA, UTI, etc. As above (9) Elevated LFTs: With elevated AST and alkaline phosphatase on admission which are improved from 1 week ago As noted above, could be secondary to possible metastases No abnormalities noted on the liver on imaging -Okay to restart statin on discharge (10) Generalized weakness: likely multifactorial including suspected UTI, acute kidney injury, mild dehydration, poor oral intake, and concern for lymphoma versus other malignant process. PT, OT. Improving (11) CAD (coronary artery disease): "silent" LA early 1970s. 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 May need bone scan Follow-up with PCP (17) Mediastinal lymphadenopathy: As above (18) Supraclavicular lymphadenopathy: As above (19) Stage III chronic kidney disease: baseline Cr about 1.8-2.0 here w/ superimposed JULISA as above which is now improved -Avoid nephrotoxins -renally dose meds when appropriate (20) Diarrhea: With 3-5 episodes of loose stools for the last week since being on antibiotics for acute prostatitis Checked C. difficile gene-was negative -Likely antibiotic associated diarrhea Somewhat improved after starting Imodium -Continue probiotics, Imodium-as needed (21) DVT prophylaxis: heparin SQ refused by pt SCDs Disposition-stable for discharge to home with close follow-up for prostate biopsy within the week Total Time Total Time Spent Total Time Spent (In Minutes): >30 min Total Time Includes: Examination of the Patient, Discharge Planning, Medication Reconciliation and Communication With Other Providers (Urology) Discharge Plan Discharge Items Patient Disposition: Home - Home Health Services Reason For Visit: OBSTRUCTIVE UROPATHY, JULISA Discharge Diagnosis: Acute kidney injury, urinary retention, possible prostate cancer, lymphadenopathy (enlarged lymph nodes) Condition on Discharge: Fair Activity: As commented below Lifting: Gradually increase as tolerated Bathing: No limitations Exercise/Sports: As tolerated Weightbearing: Full weightbearing Non-emergency contact: Primary Care Provider, Medic Technician, Oncologist and Urologist Call non-emergency contact if: you have any medication questions, your symptoms worsen, your pain is not controlled, your pain is worsening, your pain is unusual for you, your pain is concerning for you, you have a fever and your temperature is above 101 Follow-up/Referrals: Cali Montgomery MD [Physician] - (Please call the Medic Technician to arrange an outpatient stress test ) Aries Shepherd MD [Physician] - (Please arrange a Urology appointment for your prostate biopsy.) Oz Duncan DO [Physician] - Shaheen Amin DO [Primary Care Provider] - 05/30/20 4:00 pm (If you need to change this appointment, please call [phone].) Diet: Carb Consistent or DM2 and Heart Healthy Addtl Attending Provider Instructions: Please continue the oral antibiotic for at least one more week until you see Urology. You will be arranging your outpatient Urology appointment with Dr. Shepherd to set up your prostate biopsy. If you have any problems with your Asencio catheter, please call the Urology office. You can take Imodium or Pepto Bismol as needed for diarrhea. Please schedule a follow up appointment with the Oncologist, Dr. Duncan, within 1 month for your enlarged lymph nodes. The Medic Technician recommended you have a cardiac stress test as an outpatient. When you are ready to have this done, please contact Dr. Montgomery's office to arrange it. If you have worsening pain, you can take Tylenol. If this is not helping, please call your doctor for the next steps on what to do. Pending Studies at Discharge: Yes (EBV, CMV titers) Stand-Alone Forms: My [facility] Medications and DC Order Prescriptions: New tamsulosin 0.4 mg Capsule 0.4 mg PO QAM Qty: 30 RF: 0 acetaminophen 500 mg capsule 1,000 mg PO Q8 PRN (Reason: pain) Qty: 30 RF: 0 loperamide 2 mg Capsule 2 mg PO Q4 PRN (Reason: loose stool) Qty: 30 RF: 0 Saccharomyces boulardii [Florastor] 250 mg Capsule 250 mg PO DAILY Qty: 30 RF: 0 cefdinir 300 mg capsule 300 mg PO BID Qty: 14 RF: 0 Continued glucosamine-chondroitin 250-200 mg tablet 1 tab PO DAILY RF: 0 glimepiride 1 mg tablet 1 mg PO QDD RF: 0 pravastatin 10 mg tablet 10 mg PO HS RF: 0 lisinopril 2.5 mg tablet 2.5 mg PO QAM RF: 0 Discontinued ciprofloxacin HCl 250 mg tablet 250 mg PO BID Qty: 20 RF: 0 aspirin [Aspir-81] 81 mg Tablet,Delayed Release (Dr/Ec) 81 mg PO QAM RF: 0 Discharge Orders: Discharge Order (Routine); Ordered 05/23/20 Ordered By: Jane Zavala Admission Data Admit Date/Time: 05/20/20 13:52 Attending Provider: Jane Zavala Admit Provider: Nilson Benoit Primary Care Provider: Shaheen Amin Other Providers: Nilson Benoit ; Oz Duncan V. ; Cali Montgomery ; Melvin Dhillon ; [facility] Other Interventions: Discharge Summary Assessment (RN) Last Done: 05/23/20 15:27 Coding Level of Care Code D/C Day Management >30 mins Diagnoses Acute kidney injury N17.9 Acute urinary retention R33.8 Obstructed, uropathy N13.9 Prostate nodule N40.2 UTI (urinary tract infection) N30.01 Hematuria presence: with hematuria Urinary tract infection type: acute cystitis Retroperitoneal lymphadenopathy R59.0 Abnormal ECG R94.31 Elevated troponin I level R79.89 Elevated LFTs R79.89 Generalized weakness R53.1 CAD (coronary artery disease) I25.10 Diabetes mellitus with renal complications E11.29 Dyslipidemia E78.5 Hypertension I10 Leg length discrepancy M21.70 Thoracic compression fracture S22.000A Mediastinal lymphadenopathy R59.0 Supraclavicular lymphadenopathy R59.0 Stage III chronic kidney disease N18.3 Diarrhea R19.7 DVT prophylaxis Z29.9
[2020-05-27 14:11] LABS: CMV IgM Antibody <30.00 AU/mL
== END 2020-05-23 19:46 | disposition home health service (06) | DRG 683 ==
LOC: ED 11:15 → SUATTDRO 13:52 → 2W 13:52